=== PATIENT | female | born 1950 | race Caucasian/White ===

== ENCOUNTER 2018-11-08 08:31 | Inpatient (IN) | payer OTHER, MEDICARE, SELFPAY ==
[2018-10-26 12:48] VITALS: BMI 38.4
[2018-11-08] VITALS (14 sets, daily range): BP systolic 115–162; BP diastolic 55–107; PULSE 61–87; RESP 8–16; TEMP 35.9–37.1; O2SAT 91–98; BMI 38.4
--- NOTE | 2018-11-08 | DI.RAD.S_ITS ---
PROCEDURE: XR HIP W PEL IF DONE RT 2V INDICATIONS: post operative total right hip TECHNIQUE: AP pelvis and lateral view of the right hip acquired. COMPARISON: None. FINDINGS: Bones: Patient is status post right hip arthroplasty, with hardware components in expected positions. The hip joint appears congruent. The visualized bony structures appear intact. Soft tissues: Overlying postoperative changes are noted. No suspicious soft tissue densities. IMPRESSION: Expected postoperative appearance. Dictated by: Nehemias Vega M.D. on 11/08/2018 at 15:45 Approved by: Nehemias Vega M.D. on 11/08/2018 at 15:45
--- NOTE | 2018-11-08 06:00 | DI.RAD.S_ITS ---
PROCEDURE: XR PELVIS 1-2V INDICATIONS: INTRA OPERATIVE RIGHT HIP TECHNIQUE: Intra-operative view of the pelvis and hip acquired. COMPARISON: None. FINDINGS: Bones: Intraoperative devices prior to placement of arthroplasty prostheses are in expected positions. No fractures or suspicious bony lesions. There is left hip joint degeneration Soft tissues: Overlying surgical retractors are present, along with other intraoperative changes. IMPRESSION: Expected intraoperative appearance Dictated by: Nehemias Vega M.D. on 11/08/2018 at 14:31 Approved by: Nehemias Vega M.D. on 11/08/2018 at 14:32
[2018-11-08] MEDS: ACETAMINOPHEN 325 MG TABLET 975 MG PO ×2 (09:06→21:28)
[2018-11-08] MEDS: LACTATED RINGERS 1,000 ML 42 ML IV ×2 (09:06→13:57)
[2018-11-08] MEDS: CELECOXIB 200 MG CAPSULE PO (09:07)
[2018-11-08] MEDS: PREGABALIN 75 MG CAPSULE PO (09:09)
[2018-11-08] MEDS: VANCOMYCIN 1,000 MG/200 ML FROZ.PIGGY 200 MG IV (10:30)
--- NOTE | 2018-11-08 11:45 | PM.PREOP ---
Pre-operative Note Interval Note History & Physical reviewed/Exam performed by Physician: Yes Changes to H&P: No
--- NOTE | 2018-11-08 11:46 | PM.OP.1 ---
Operative Date/Time/Diagnoses Date of procedure: 11/08/18 Time of procedure: 11:59 Pre-op diagnosis: right hip OA Post-op diagnosis: same Procedure & Clinicians Procedure: Right total hip arthroplasty Same procedure as scheduled: Yes Indications: The patient has had progressively worsening right hip pain with radiographic changes consistent with arthritis. Non-operative management has failed and the patient has requested total hip replacement. The risks, benefits and alternatives to surgery were discussed with the patient prior to proceeding. Risks discussed included, but were not limited to, failure to relieve pain, leg length discrepancy, dislocation, stiffness, infection, nerve damage, deep venous thrombosis, pulmonary embolism, stroke, coma, heart attack, permanent paralysis and , as well as the potential need for eventual revision of the prosthetic. Surgeon: Makenzie Salgado Watch Crystal Grinder: Belle Smith Anesthesia Type: General and Spinal Operative Notes Findings: Severe right hip AVN with moderate bone softening Closure Type: primary Specimen(s): none sent Prosthetic devices, grafts, tissues, transplants, or devices: Salgado and Nephew anthology 6 standard offset, 48 R3, 1 15mm screw, 32 +0 Applied: drain(s) Estimated Blood Loss (mL): 250 Blood products transfused: none Procedure in detail: The patient was seen in the pre-operative area, where the patient identified the right hip as the operative site and this was marked with my initials. The patient received pre-operative antibiotics and was taken to the operating room and placed on the operative table in the left lateral decubitus position after satisfactory anesthesia. A multimedia assistant out was performed. The right leg was prepared from the ankle to the iliac crest with ChloroPrep in the usual fashion and draped through sterile drapes. The hip was approached through an approximately 20 cm incision centered over the greater trochanter and curving gently posteriorly as it went proximally. This was carried sharply to the fascia patrick, which was divided and retracted with a self retaining retractor. There was an atypical bursae encountered superficial to the fascia patrick. It was carefully removed and freshened to allow the subcutaneous tissue to heal to the underlying fascia. The trochanteric bursa was excised with care being taken to avoid the sciatic nerve, which was identified and protected throughout the case. The short external rotators were incised and the capsulomuscular flap was raised and tagged for later repair. The hip was dislocated, and a femoral neck osteotomy performed approximately 15 mm above the lesser trochanter. Retractors were placed around the femur. The canal was opened with a box cutting osteotome, followed by a T handled reamer and a lateralizing reamer. The chili pepper broach was then used, followed by sequential broaching until there was good stability of the broach in the femur. Retractors were placed to expose the acetabulum. The labrum and central soft tissues were removed. Reaming was performed initially going up in 2 mm increments, then 1 mm increments until good bite was obtained with an odd sized reamer. The cup 1 mm larger than the last reamer was then inserted using the appropriate anteversion guides. A trial neutral liner was placed. The broach was placed in the canal. A trial head and neck were then placed and the hip relocated and checked for leg length and stability. An intraoperative film confirmed the component position and no evidence of fracture. The patient was stable in the position of sleep, of squatting, and could be put through a range of motion with 45 degrees internal rotation without dislocation. At 90 degrees flexion, internal rotation to [70] was possible before dislocation. This was felt to be satisfactory and the appropriate components were opened, and the trials were removed. She had a soft acetabulum and it was opted to stabilize the cup with a single screw and then the line was impacted. The acetabular liner was impacted into position. The final stem was then impacted into the prepared femoral canal. A brief Betadine soak was performed while trialing with head options. The hip was meticulously irrigated with normal saline. Finally the femoral head was impacted onto the stem. The acetabulum was cleared of all material and the hip relocated one final time. The capsulomuscular flap was then repaired to the greater trochanter though an awl hole using the tag sutures. The short external rotators were repaired with a nonabsorbable suture. A deep drain was placed and brought out anteriorly. The fascia patrick was closed with Vicryl. The subcutaneous layer was closed with barbed sutures and SteriStrips. An Aquacel Ag dressing was applied and the patient was taken to recovery having tolerated the procedure well. Complications: none Condition: stable Disposition: Acute Care Plan for aftercare: The patient will be maintained on a standard total hip replacement protocol with weight bearing as tolerated and posterior hip precautions. The patient will receive Aspirin and sequential compression devices for DVT prophylaxis. The patient will be discharged home when safe for the home environment.
[2018-11-08] MEDS: CEFAZOLIN 2 GM/100 ML FROZ.PIGGY IV ×2 (11:50→21:36)
--- NOTE | 2018-11-08 12:05 | PM.CHAP ---
patient still in surgery when I stopped by
--- NOTE | 2018-11-08 12:24 | PC.NURSE ---
Day shift: Pt not on AC unit at this time.
--- NOTE | 2018-11-08 12:33 | SUR.OPER ---
LEFT Lateral on padded OR bed. Gel axillary roll. Arms secured on padded armboard with pillow supporting top arm. Padded hip positioner braces x4 - anterior and posterior chest and pelvis. Additional gel pad used anterior pelvis. Gel pad under bottom leg from knee to foot and secured with tape over sheet.
[2018-11-08] MEDS: BUPIVACAINE 0.25% W/ EPI 30 ML VIAL 60 ML INJ (12:39)
[2018-11-08] MEDS: TRANEXAMIC ACID 1,000 MG VIAL 1000 MG INJ ×2 (12:40→14:05)
[2018-11-08] MEDS: BUPIVACAINE LIPOSOME 266 MG/20 ML VIAL INJ (12:40)
[2018-11-08] MEDS: POVIDONE-IODINE 15 ML, SODIUM CHLORIDE 0.9% 250 ML TOP (12:41)
[2018-11-08] MEDS: SODIUM CHLORIDE IRRIG SOLUTION 250 ML, EPINEPHrine 1 MG IRR (12:43)
--- NOTE | 2018-11-08 16:10 | SUR.PHASEI ---
james started at 1030 but documentation was never completed. Stopped by this designer/writer to show [id number]
[2018-11-08] MEDS: hydrOXYzine pamoate 25 MG CAPSULE PO (16:30)
[2018-11-08] MEDS: LACTATED RINGERS 1,000 ML 125 ML IV (16:38)
[2018-11-08] MEDS: ONDANSETRON 4 MG/2 ML INJ IV (18:18)
[2018-11-08] MEDS: diphenhydrAMINE 25 MG TABLET 50 MG PO (21:06)
[2018-11-08] MEDS: ASPIRIN EC 81 MG TABLET PO (21:28)
[2018-11-08] MEDS: ONDANSETRON 4 MG ODT PO (21:29)
[2018-11-08] MEDS: DOCUSATE 100 MG CAPSULE PO (21:29)
[2018-11-08] MEDS: IBUPROFEN 400 MG TABLET 800 MG PO (21:30)
[2018-11-09 00:15] VITALS: BP 120/70; PULSE 67; RESP 18; TEMP 36.7; O2SAT 94
[2018-11-09] MEDS: LACTATED RINGERS 1,000 ML 125 ML IV (00:30)
[2018-11-09 03:15] VITALS: BP 121/69; PULSE 69; RESP 16; TEMP 36.5; O2SAT 95
[2018-11-09] MEDS: diphenhydrAMINE 25 MG TABLET 50 MG PO (03:19)
[2018-11-09] MEDS: CEFAZOLIN 2 GM/100 ML FROZ.PIGGY IV (03:28)
[2018-11-09] MEDS: HYDROMORPHONE 2 MG TABLET PO ×2 (03:34→21:26)
--- NOTE | 2018-11-09 05:13 | PC.NURSE ---
Addendum entered and electronically signed by Jacki Santos R.N. 11/09/18 06:45: Bladder scan at 0650 showed 324mls urine. Patient denies pain at this time. Original Note: Addendum entered and electronically signed by Jacki Santos R.N. 11/09/18 05:37: Pt has artificial light aversion issues, needs sunglasses when lights are on in the room. Original Note: Pt is and co-operative, and assertive. Pt has denied pain most of the shift until she was up to urinate. Pt was unable to urinate at 0330. She was bladder scanned and her volume was 142ml. Will continue to monitor and re-assess before shift change. After the restroom, pt was in need of some pain medication. Pain was 2/10, was given 2mg dilaudid for pain at 0330. VSS, Lung sounds clear bilaterally. Dressing is clean/dry and intact, Aquacell dressing on posterior hip. Pt is on [place] maybe D/C tomorrow.
[2018-11-09 05:50] LABS: Hematocrit 33.2 % (36-46); Hemoglobin 10.7 g/dL (12.0-16.0)
--- NOTE | 2018-11-09 07:43 | P.PN_ITS ---
Subjective Date Patient Seen: 11/09/18 Interval history: Patient is seen bedside status post right total hip arthro plasty on 11/08/[address] Salgado. Patient is POD #1. She is doing well, her pain is well controlled but had some urinary retention overnight. Her pain is controlled and she denies nausea/vomiting at this time. Exam Vital Signs (past 8 hours): - 11/09/18 00:15 11/09/18 03:15 Temperature 98.1 F 97.7 F Pulse Rate 67 69 Respiratory Rate 18 16 Blood Pressure 120/70 121/69 Pulse Oximetry 94 95 Oxygen Delivery Method Room Air Narrative Exam Narrative: Well-developed, well-nourished, no acute distress. Alert and oriented to person, place, and time. Dressing on operative hip is clean, dry, a nd intact with no signs of drainage. Minimal erythema and generalized swelling around the surgical site. Neurovascularly intact in the operative extremity with a soft and compressible calf. Range of motion of the operative ankle intact. Objective Labs Result Diagrams: 11/09/18 05:29 Labs: Laboratory Results - last 24 hr 11/09/18 05:29 Hgb 10.7 L Hct 33.2 L Assessment & Plan Post-op (1) Morbid obesity with BMI of 40.0-44.9, adult: Postoperative Procedures Operation Date: 11/08/18 10:30 Actual Procedures Side Surgeon p Total Hip Arthroplasty/Posterior Right Makenzie Monika Salgado MD 1. POD #1 s/p above procedure-PT/OT, pain control. Follow posterior hip precautions 2. Urinary retention-voiding trial today. Dispo-d/c home once medically stable and ambulating well with therapy, likely tomorrow Quality VTE Deep Vein Thrombosis/Pulmonary Embolism Present on Admission: No
[2018-11-09 08:00] VITALS: BP 116/69; PULSE 60; RESP 16; TEMP 36.4; O2SAT 94
[2018-11-09] MEDS: DOCUSATE 100 MG CAPSULE PO ×2 (08:55→21:27)
[2018-11-09] MEDS: MELOXICAM 7.5 MG TABLET 15 MG PO (08:55)
[2018-11-09] MEDS: ASPIRIN EC 81 MG TABLET PO ×2 (08:55→21:27)
[2018-11-09] MEDS: ACETAMINOPHEN 325 MG TABLET 975 MG PO ×3 (08:55→21:27)
--- NOTE | 2018-11-09 10:01 | PT.IIE ---
Current Diagnoses Morbid (severe) obesity due to excess calories (11/08/18) Unilateral primary osteoarthritis, right hip (11/08/18) Body mass index (BMI) 40.0-44.9, adult (11/08/18) Surgery Performed Operation Date: 11/08/18 10:30 Actual Procedures p Total Hip Arthroplasty/Posterior(Right) - Makenzie Salgado MD Surgical History (Last Updated 10/26/18 @ 13:18 by Oly Villegas, RN) Hx of appendectomy (Acute) S/P cervical spinal fusion (Acute ~1991) Status post bilateral cataract extraction (Acute) Medical History (Last Updated 10/26/18 @ 13:26 by Oly Villegas RN) BCC (basal cell carcinoma) (Acute) Benign positional vertigo (Acute) Concussion (Acute) HLD (hyperlipidemia) (Acute) Hx of ectopic (Acute) Pelvic fracture (Acute) Periodontal disease (Acute) Right foot drop (Acute) Physical Therapy Inpatient Evaluation/Re-Eval M1 PT/OT-IP Prior Functional Status Start: 11/08/18 17:08 Freq: NEEDED Status: Active Protocol: Document 11/09/18 08:20 (Rec: 11/09/18 10:01 [email or web address]) Medical Review Prior Functional Status Medical History Reviewed Yes Diet/Fluid Consistency Regular Communication No deficits noted. Able to make needs known Mobility and Gait Pt was independent for mobility at home and community without AD. She is mostly home bound and able to local shopping, appt but cannot go far due to chronic hip pain . She also drives. Activities of Daily Living and IADL's indepedent for ADLs and IADLs without AD Prior Functional Level (Other details) has difficult time doing garden work. Social History Household Members none Living Arrangements House Number of Floors (Floors) One Floor Number of Stairs To Enter/Railing? 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 She mostly works at home. She states she is pretty much home bound to use her computer to work, usually gets up to bathroom every hour. She has a recliner at home and plans to sleep on it until she feels safe to use her high bed. She usually needs a step stool to get on her bed. M2 PT-IP Current Condition Start: 11/08/18 17:08 Freq: NEEDED Status: Active Protocol: Document 11/09/18 08:20 HH (Rec: 11/09/18 10:01 [email or web address]) Physical Therapy Current Condition Current Condition Evaluation Date 11/09/18 Treatment Diagnosis R JUNI posterior approach, impaired gait and activity tolerance Onset Date 11/08/18 Precautions Posterior Hip Precautions No Hip Flexion > 90 degrees No Hip Internal Rotation No Hip Adduction Weight Bearing Status Weight Bearing Status Weight Bear as Tolerated M3 PT-IP Subjective Start: 11/08/18 17:08 Freq: NEEDED Status: Active Protocol: Document 11/09/18 08:20 HH (Rec: 11/09/18 10:01 [email or web address]) Subjective Physical Therapy Visit Type Type Initial Evaluation Visit Start Time 08:20 Visit Stop Time 09:00 Total Visit Minutes 40 Notes Hemovac, IV just removed upon assessment Number of PAPER CONE MACHINE TENDER Visits 0 Physical Therapy Visit Comments Patient Comments I want to get mobilized and take a shower after. Patient Goals To return home Therapy Pain Assessment Pain When Pain Assessed During Mobility Pain Present Pain Present Denied Pain M4 PT-IP Mobility and Gait Start: 11/08/18 17:08 Freq: NEEDED Status: Active Protocol: Document 11/09/18 08:20 HH (Rec: 11/09/18 10:01 [email or web address]) PT-Bed Mobility Assessment Supine to Sit Supine to Sit Contact Guard Assistance Head of Bed Elevated Bedrails Scooting Scooting to Edge of Bed Contact Guard Assistance PT-Transfer Assessment Sit to and From Stand Sit to and from Stand Contact Guard Assistance Use of Upper Extremities Equipment Transfer Assistive Device None Front Wheeled Walker Orthotic/Prosthetic Devices or Brace: No Transfers Transfer Destination Bed Chair Bedside Commode Transfer Technique Stand Step Pivot Transfer Ability Level of Assist Contact Guard Assistance Use of Upper Extremities Comments Mobility Comments Pt sat up from supine from elevated HOB 40 degrees then pivot her RLE to edge of bed. Pt needs increased time to pivot and scooting but remained safe and CGA. She then stood up and transfers between surface multiple times with FWW and stand step pivot . She also stood in front of counter for self care for >10 mins without supported. She is overall very safe and steady. Gait Assessment Gait Gait Assistance Required: Standby Assistance Distance (Feet) 150 Able to Maintain Weight Bearing Status Yes During Gait Assistive Devices Assistive Device None Front Wheeled Walker Orthotic/Prosthetic Devices or Brace: No Gait Deviations General Gait Pattern Antalgic Decreased Stride Length Decreased Feet Clearance Step-to Gait Factors Limiting Gait Function Factors Limiting Gait Function Decreased Activity Tolerance Decreased Strength Limited Range of Motion Poor Safety Awareness Respiratory Distress Comments Gait Comments Pt amb from her room to hallway with FWW SBA. She demonstrated a step to and R antalgic gait pattern but her speed is relatively slow but steady. However, she denies pain and discomfort and able to amb 150 feet without rest. Stair Climbing Assessment Comments Stair Climbing Comments did not attempt PT-Balance Assessment Sitting Balance and Reactions Static Sitting Balance Ability Normal Dynamic Sitting Balance Ability Normal Standing Balance and Reactions Static Standing Balance Ability Good Dynamic Standing Balance Ability Good Device Used FWW M5 PT-IP Objective Assessments Start: 11/08/18 17:08 Freq: NEEDED Status: Active Protocol: Document 11/09/18 08:20 (Rec: 11/09/18 10:01 [email or web address]) Orientation Orientation/Cognition Level of Alertness Alert Orientation Name Age Birthday Month Date Year Day of Week Place Situation Language Function Ability No Deficits Noted Safety Awareness Understands Safety Issues Memory Description No Deficits Noted Gross Range of Motion Upper Extremity ROM Assessment Within Functional Limits Lower Extremity ROM Assessment Right Impaired Strength Upper Extremity Strength Assessment Within Functional Limits Lower Extremity Strength Assessment Right Impaired Hip 3+/5 Knee 4+/5 Ankle 4+/5 Coordination Assessment Gross Coordination Gross Coordination WNL Sensation Assessment Sensation Gross Sensation WNL Light Touch Intact Proprioception (Position) Intact Muscle Tone Muscle Tone WNL Yes M6 PT-IP Treatment Start: 11/08/18 17:08 Freq: NEEDED Status: Active Protocol: Document 11/09/18 08:20 (Rec: 11/09/18 10:01 [email or web address]) Physical Therapy Treatment Exercises Exercises Ankle Pumps Gluteal Sets Quad Sets Heel Slides Straight Leg Raises Education Education Provided Precautions Weight Bearing Status Post-Op Packet Safety M7 PT-IP Assessment and Plan Start: 11/08/18 17:08 Freq: NEEDED Status: Active Protocol: Document 11/09/18 08:20 (Rec: 11/09/18 10:01 [email or web address]) PT Summary Assessment and Plan Potential Rehabilitation Potential Excellent Status of Condition at Evaluation Stable Summary Impairments Pain ROM Strength Balance Bed Mobility Transfers Gait Activity Tolerance Assessment Summary Pt is low complexity with s/p POD#2 R JUNI posterior approach . Pt is able to amb 150 feet without rest with SBA and FWW. She does need increased time for bed mobility and sit to stand. Pt lives alone with 2 GILSON and previously home bound most of the time so she will have to clear rehab goals in order to be d/c home safely. Pt will mostly benefit from home health therapy to improve her mobility. Goals Bed Mobility Goal Independent Transfer Goal Independent Front Wheeled Walker Gait Goal Independent Front Wheel Walker Gait Distance 300 Other Goals clear 2 GILSON without railings SBA Days to Meet Goals 3 Frequency of Treatment Frequency Of Treatment Twice a Day Treatment Plan Physical Therapy Treatment Plan Bed Mobility Training Transfer Training Gait Training Therapeutic Exercise Balance Retraining Post Op Education Discharge Planning Hot or Cold Pack Other Recommendations and Next Treatment bed mob, STS and transfer Focus gait training and stair climbing as daljit Recommendations To Nursing Amount of Assist Needed Standby Assistance Discharge Recommendations PT Discharge Recommendations Home Home Health Other Discharge Recommendations Pt lives alone with 2 GILSON and previously home bound most of the time so she will have to clear rehab goals in order to be d/c home safely. Pt will mostly benefit from home health therapy to improve her mobility. Equipment Needed for Home Before shower chair Discharge
--- NOTE | 2018-11-09 10:13 | CM.DPC ---
DCP Cont: Received a call from Christi Landaverde, RN, [employer] Blindstitch Machine Operator. She stated if we are in need of any discharge planning assistance for this patient, we can call her at [phone]. Carrie Goldman, [facility] Grain Shipper
[2018-11-09 11:00] VITALS: BP 120/60; PULSE 65; RESP 16; TEMP 36.1; O2SAT 96
--- NOTE | 2018-11-09 11:15 | CM.DANOTE ---
DCP: Case received, EMR reviewed and met with patient. Introduced self and role. Obtained information from patient regarding her health, and discharge plans. DCP template completed with information currently available. Patient is a 68 year old female who admitted yesterday morning to the care of the surgical team. PCP: Dr. Desai. Payer: confirmed: [employer]. Patient came to hospital for surgical procedure. She had R. Total Hip Arthroplasty. Patient has had history of chronic right hip pain. Met with her in her room. She was sitting up in her chair talking on the phone. Alert and oriented. 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 She does live alone, but she stated, she planned out who is going to help her before she had the surgery. She stated that she has plans to have her neighbor, Kirsten pick her up tomorrow. She lives next door to her. She will be coming over several times a day if she needs assist with meals, or any other assistance. She will also take patient's dog, to help out, since patient will have difficulties bending over to feed him. Patient feels that she has everything covered. Gave her discharge planning card, per her request, in case she has any questions or concerns. P: DCP to continue to follow closely. She could discharge home tomorrow, pending physical therapy and ortho. Emilia Sheehan RN/Public Works Director
[2018-11-09] MEDS: OXYCODONE IR 5 MG TABLET PO (11:19)
[2018-11-09] MEDS: SODIUM CHLORIDE 0.9% FLUSH 10 ML IV ×3 (11:20→21:27)
--- NOTE | 2018-11-09 14:01 | PT.IPTN ---
Current Diagnoses Morbid (severe) obesity due to excess calories (11/08/18) Unilateral primary osteoarthritis, right hip (11/08/18) Body mass index (BMI) 40.0-44.9, adult (11/08/18) Surgery Performed Operation Date: 11/08/18 10:30 Actual Procedures p Total Hip Arthroplasty/Posterior(Right) - Makenzie Salgado MD Physical Therapy Treatment Note M2 PT-IP Current Condition Start: 11/08/18 17:08 Freq: NEEDED Status: Active Protocol: Document 11/09/18 08:20 (Rec: 11/09/18 10:01 [email or web address]) Physical Therapy Current Condition Current Condition Evaluation Date 11/09/18 Treatment Diagnosis R JUNI posterior approach, impaired gait and activity tolerance Onset Date 11/08/18 Precautions Posterior Hip Precautions No Hip Flexion > 90 degrees No Hip Internal Rotation No Hip Adduction Weight Bearing Status Weight Bearing Status Weight Bear as Tolerated M3 PT-IP Subjective Start: 11/08/18 17:08 Freq: NEEDED Status: Active Protocol: Document 11/09/18 13:54 SA (Rec: 11/09/18 14:01 SA [email or web address]) Subjective Physical Therapy Visit Type Type Treatment Note Visit Start Time 13:00 Visit Stop Time 13:45 Total Visit Minutes 45 Notes Pt up in chair, agreeable to PT. Number of SURGICAL DEVICE SALES REPRESENTATIVE Visits 1 Physical Therapy Visit Comments Patient Comments PT rates pain as 2-3/10 with mobility. Patient Goals To return home Therapy Pain Assessment Pain When Pain Assessed During Mobility Pain Present Pain Present Pain Reported Location R hip Intensity 2 Scale Used Numeric (1 - 10) Pain Management Techniques Apply Cold Re-positioning Timing of Activity with Medications M4 PT-IP Mobility and Gait Start: 11/08/18 17:08 Freq: NEEDED Status: Active Protocol: Document 11/09/18 13:54 SA (Rec: 11/09/18 14:01 SA [email or web address]) PT-Transfer Assessment Sit to and From Stand Sit to and from Stand Standby Assistance Contact Guard Assistance 1 Person Assistance Equipment Transfer Assistive Device None Front Wheeled Walker Orthotic/Prosthetic Devices or Brace: No Transfers Transfer Destination Bed Chair Toilet Transfer Ability Level of Assist Standby Assistance 1 Person Assistance Comments Mobility Comments Pt SBA for transfers on/off chair and toilet, uses FWW safely, no LOb. Pt understands and able to recite posterior hip precautions. Gait Assessment Gait Gait Assistance Required: Standby Assistance Distance (Feet) 450 Able to Maintain Weight Bearing Status Yes During Gait Assistive Devices Assistive Device None Front Wheeled Walker Orthotic/Prosthetic Devices or Brace: No Gait Deviations General Gait Pattern Antalgic Decreased Stride Length Decreased Feet Clearance Factors Limiting Gait Function Factors Limiting Gait Function Decreased Activity Tolerance Decreased Strength Comments Gait Comments Pt walked 450 feet with 3 standing rest breaks and slow, steady pace. Progressed to even step length with increasing WBing through RLE. Stair Climbing Assessment Evaluation Level of Assist On Stairs Contact Guard Assistance Devices Stair Climbing Assistive Devices Left Railing Right Railing Technique/Endurance Stair Climbing Direction Ascend and Descend Stair Climbing Technique Step to Step Number of Steps Climbed 3 Query Text: Stair Climbing Set # Repetitions (reps) 2 Comments Stair Climbing Comments PT CGA with stairs and use of B rails, mod cues for technique and denies increase in hip pain with activity. PT-Balance Assessment Sitting Balance and Reactions Static Sitting Balance Ability Normal Dynamic Sitting Balance Ability Normal Standing Balance and Reactions Static Standing Balance Ability Good Dynamic Standing Balance Ability Good Device Used FWW M5 PT-IP Objective Assessments Start: 11/08/18 17:08 Freq: NEEDED Status: Active Protocol: Document 11/09/18 08:20 (Rec: 11/09/18 10:01 [email or web address]) Orientation Orientation/Cognition Level of Alertness Alert Orientation Name Age Birthday Month Date Year Day of Week Place Situation Language Function Ability No Deficits Noted Safety Awareness Understands Safety Issues Memory Description No Deficits Noted Gross Range of Motion Upper Extremity ROM Assessment Within Functional Limits Lower Extremity ROM Assessment Right Impaired Strength Upper Extremity Strength Assessment Within Functional Limits Lower Extremity Strength Assessment Right Impaired Hip 3+/5 Knee 4+/5 Ankle 4+/5 Coordination Assessment Gross Coordination Gross Coordination WNL Sensation Assessment Sensation Gross Sensation WNL Light Touch Intact Proprioception (Position) Intact Muscle Tone Muscle Tone WNL Yes M6 PT-IP Treatment Start: 11/08/18 17:08 Freq: NEEDED Status: Active Protocol: Document 11/09/18 13:54 SA (Rec: 11/09/18 14:01 SA [email or web address]) Physical Therapy Treatment Exercises Exercises Ankle Pumps Gluteal Sets Quad Sets Heel Slides Straight Leg Raises Education Education Provided Precautions Weight Bearing Status Post-Op Packet Safety M7 PT-IP Assessment and Plan Start: 11/08/18 17:08 Freq: NEEDED Status: Active Protocol: Document 11/09/18 13:54 SA (Rec: 11/09/18 14:01 SA [email or web address]) PT Summary Assessment and Plan Potential Rehabilitation Potential Excellent Status of Condition at Evaluation Stable Summary Assessment Summary Pt to return home and sleep in a recliner temporarily, has elevated toilet and grab bar and personal FWW. Demonstrates good safety awareness and improving gait. Frequency of Treatment Frequency Of Treatment Twice a Day Treatment Plan Physical Therapy Treatment Plan Bed Mobility Training Transfer Training Gait Training Therapeutic Exercise Balance Retraining Post Op Education Discharge Planning Hot or Cold Pack Other Recommendations and Next Treatment bed mob, STS and transfer Focus gait training and stair climbing as daljit Recommendations To Nursing Amount of Assist Needed Standby Assistance Discharge Recommendations PT Discharge Recommendations Home Home Health
--- NOTE | 2018-11-09 15:11 | CM.DPC ---
Addendum entered by Emilia Sheehan R.N. 11/09/18 15:57: [facility] also does not take [employer] insurance. Signature stated that patient would have to pay 40% because she is out of network, which would be approximately 100.00 a visit. Updated patient, and she stated, she can't do that. Patient also called her insurance, [facility], and they gave phone numbers for providing agencies, [facility] Confirmed that they do not leave [facility]. Attempted [place], and they do not serve [facility]. Attempted another agency, [facility], which was not a home health agency. Attempted [facility], but this is a nursing agency. Will attempt to reach out to her [facility] high risk case manager tomorrow, for a message has been left with her already. Patient is aware of situation. Original Note: DCP Cont: Patient called this high risk case manager's phone here in office and stated that she would like to have some short term home health physical therapy. She stated that after a few sessions, she can then pursue outpatient physical therapy. She thinks that she will probably be discharged tomorrow. Asked her if she had a preference on home health agencies, and she stated she does not. Would also need to get orders from orthopedist as well. Let her know that this high risk case manager can look into some agencies and send some information. Called [facility] and spoke to Linda. Verified that they do not accept [employer]. Left a message with [facility] [employer] [employer], and faxed over history and physical, face sheet, and physical therapy notes. Left a message with [facility] as well, but have not yet faxed them information. Also, left a message with Demetria high risk case manager at [facility] regarding agencies that accept her insurance. P: DCP to continue to follow closely. Patient could be discharged tomorrow. Patient is requesting home health P.T, and will await hearing back from [facility], as well as [facility]. Notes already faxed to [facility]. Will also need to get face to face signed as well. Emilia Sheehan RN/Community Recreation Coordinator
[2018-11-09 15:42] VITALS: BP 126/55; PULSE 66; RESP 18; TEMP 36.8; O2SAT 95
[2018-11-09] MEDS: hydrOXYzine pamoate 25 MG CAPSULE PO (16:08)
--- NOTE | 2018-11-09 16:29 | PC.NURSE ---
Addendum entered by Jessica Martinez R.N. 11/09/18 23:39: Declined pain meds until hs. Float RN medicated pt as per request. Now resting quietly in bed without signs of discomfort or distress. Original Note: Pt ambulatory with walker in hallway at beginning of shift. Rates pain 3/10 and admits to full sensation to BL LE's. Denies difficulty with voiding. Up in recliner for evening meal. Own I.S. available and pt engaged in use.
[2018-11-09 20:41] VITALS: BP 121/72; PULSE 59; RESP 18; TEMP 36.8; O2SAT 100
[2018-11-10] VITALS: BP 125/61; PULSE 61; RESP 16; TEMP 37; O2SAT 94
--- NOTE | 2018-11-10 00:14 | PC.NURSE ---
2300- POD#1 total R hip via posterior approach w/ aquasil dressing in place CDI; hemovac removed on dayshift dressing has been changed x1. Pt moving independently in room, CMS +, saline locked. Tolerating regular diet w/ VSS.
[2018-11-10] MEDS: HYDROMORPHONE 2 MG TABLET PO ×2 (03:02→08:07)
[2018-11-10 03:12] VITALS: BP 156/72; PULSE 85; RESP 16; TEMP 37.1; O2SAT 99
--- NOTE | 2018-11-10 07:31 | CM.DPC ---
DCP Cont: Did reach out to Demetria insurance case manager for [employer]. Confirmed that there are no local home health agencies that accept [employer]. Stated that outpatient P.T. in [facility], [place], sports therapy are all contracted. Will update patient. P: DCP to continue to follow. Will collaborate with physical therapy team today, as well as ortho, for planning. Emilia Sheehan RN/Manager File
[2018-11-10 08:00] VITALS: BP 142/72; PULSE 72; RESP 16; TEMP 36.7; O2SAT 97
[2018-11-10] MEDS: hydrOXYzine pamoate 25 MG CAPSULE PO (08:07)
[2018-11-10] MEDS: MELOXICAM 7.5 MG TABLET 15 MG PO (08:07)
[2018-11-10] MEDS: DOCUSATE 100 MG CAPSULE PO (08:07)
[2018-11-10] MEDS: ASPIRIN EC 81 MG TABLET PO (08:07)
[2018-11-10] MEDS: SODIUM CHLORIDE 0.9% FLUSH 10 ML IV (08:08)
[2018-11-10] MEDS: ACETAMINOPHEN 325 MG TABLET 975 MG PO (08:08)
--- NOTE | 2018-11-10 11:02 | PT.IPTN ---
Current Diagnoses Morbid (severe) obesity due to excess calories (11/08/18) Unilateral primary osteoarthritis, right hip (11/08/18) Body mass index (BMI) 40.0-44.9, adult (11/08/18) Surgery Performed Operation Date: 11/08/18 10:30 Actual Procedures p Total Hip Arthroplasty/Posterior(Right) - Makenzie Salgado MD Physical Therapy Treatment Note M2 PT-IP Current Condition Start: 11/08/18 17:08 Freq: NEEDED Status: Active Protocol: Document 11/09/18 08:20 (Rec: 11/09/18 10:01 [email or web address]) Physical Therapy Current Condition Current Condition Evaluation Date 11/09/18 Treatment Diagnosis R JUNI posterior approach, impaired gait and activity tolerance Onset Date 11/08/18 Precautions Posterior Hip Precautions No Hip Flexion > 90 degrees No Hip Internal Rotation No Hip Adduction Weight Bearing Status Weight Bearing Status Weight Bear as Tolerated M3 PT-IP Subjective Start: 11/08/18 17:08 Freq: NEEDED Status: Active Protocol: Document 11/10/18 10:53 SA (Rec: 11/10/18 11:01 [id number]) Subjective Physical Therapy Visit Type Type Treatment Note Visit Start Time 09:10 Visit Stop Time 09:45 Total Visit Minutes 35 Notes Pt standing at sink performing ADLs, agreeable to PT. Number of PERSONAL COMPUTER NETWORK ENGINEER Visits 2 Physical Therapy Visit Comments Patient Comments Rates pain as very low, maybe a 2. Patient Goals To return home Therapy Pain Assessment Pain When Pain Assessed During Mobility Pain Present Pain Present Pain Reported Location R hip Intensity 2 Scale Used Numeric (1 - 10) Pain Management Techniques Apply Cold Re-positioning Timing of Activity with Medications M4 PT-IP Mobility and Gait Start: 11/08/18 17:08 Freq: NEEDED Status: Active Protocol: Document 11/10/18 10:53 SA (Rec: 11/10/18 11:01 [id number]) PT-Transfer Assessment Sit to and From Stand Sit to and from Stand Standby Assistance 1 Person Assistance Equipment Transfer Assistive Device None Front Wheeled Walker Orthotic/Prosthetic Devices or Brace: No Transfers Transfer Destination Bed Chair Toilet Transfer Ability Level of Assist Standby Assistance Comments Mobility Comments Pt SBA with safe transfers and sit to stands, plans to sleep in recliner initially at home . Gait Assessment Gait Gait Assistance Required: Standby Assistance Distance (Feet) 500 Able to Maintain Weight Bearing Status Yes During Gait Assistive Devices Assistive Device None Front Wheeled Walker Orthotic/Prosthetic Devices or Brace: No Gait Deviations General Gait Pattern Antalgic Decreased Stride Length Decreased Feet Clearance Factors Limiting Gait Function Factors Limiting Gait Function Decreased Activity Tolerance Decreased Strength Comments Gait Comments Pt with improving gait quality , able to WB less through UEs and maintain upright stanging posture better with increased step length. Stair Climbing Assessment Evaluation Level of Assist On Stairs Standby Assistance Contact Guard Assistance Devices Stair Climbing Assistive Devices Right Railing Technique/Endurance Stair Climbing Direction Ascend and Descend Stair Climbing Technique Step to Step Number of Steps Climbed 3 Query Text: Stair Climbing Set # Repetitions (reps) 1 Comments Stair Climbing Comments Pt SBA-CGA with use of single rail and step to gait, no LOB and min cues. M5 PT-IP Objective Assessments Start: 11/08/18 17:08 Freq: NEEDED Status: Active Protocol: Document 11/09/18 08:20 (Rec: 11/09/18 10:01 [email or web address]) Orientation Orientation/Cognition Level of Alertness Alert Orientation Name Age Birthday Month Date Year Day of Week Place Situation Language Function Ability No Deficits Noted Safety Awareness Understands Safety Issues Memory Description No Deficits Noted Gross Range of Motion Upper Extremity ROM Assessment Within Functional Limits Lower Extremity ROM Assessment Right Impaired Strength Upper Extremity Strength Assessment Within Functional Limits Lower Extremity Strength Assessment Right Impaired Hip 3+/5 Knee 4+/5 Ankle 4+/5 Coordination Assessment Gross Coordination Gross Coordination WNL Sensation Assessment Sensation Gross Sensation WNL Light Touch Intact Proprioception (Position) Intact Muscle Tone Muscle Tone WNL Yes M6 PT-IP Treatment Start: 11/08/18 17:08 Freq: NEEDED Status: Active Protocol: Document 11/10/18 10:53 SA (Rec: 11/10/18 11:01 [id number]) Physical Therapy Treatment Exercises Exercises Ankle Pumps Gluteal Sets Quad Sets Heel Slides Straight Leg Raises Education Education Provided Precautions Weight Bearing Status Post-Op Packet Safety M7 PT-IP Assessment and Plan Start: 11/08/18 17:08 Freq: NEEDED Status: Active Protocol: Document 11/10/18 10:53 SA (Rec: 11/10/18 11:01 [id number]) PT Summary Assessment and Plan Potential Rehabilitation Potential Excellent Status of Condition at Evaluation Stable Summary Assessment Summary Pt progressing well and ready for d/c home, able to manage ADLs, stairs and gait safely. Has need equipment at home. Frequency of Treatment Frequency Of Treatment Twice a Day Treatment Plan Physical Therapy Treatment Plan Bed Mobility Training Transfer Training Gait Training Therapeutic Exercise Balance Retraining Post Op Education Discharge Planning Hot or Cold Pack Recommendations To Nursing Amount of Assist Needed Standby Assistance Discharge Recommendations PT Discharge Recommendations Home Outpatient PT
--- NOTE | 2018-11-10 11:08 | P.DS_ITS ---
History of Present Illness Date Patient Seen: 11/10/18 Chief complaint: [id number] Narrative: Patient is seen bedside status post right total hip arthroplasty with Dr. Salgado on 11/08/2018. Patient is postop day 2. Her pain is well controlled, she has been ambulating well with physical therapy as well as on her own with a walker. She would like to go home today. She denies chest pain shortness of breath nausea vomiting. Originally patient did want to have home health physical therapy however her insurance does not cover any of the companies in [facility]. Discharge Providers Date of admission: 11/08/18 08:31 Discharge Date: 11/10/18 Consults: 10/26/18 13:38 Consult to Pastoral Services Routine Comment: RT JUNI 11/08/18 11/08/18 06:00 Consult to Anesthesiology Routine Comment: Consulting Provider: Anesthesiologist Reason for consultation: Regional block for post operative pain control 11/08/18 16:03 Consult to Discharge Planning Routine Comment: Consult to Physical Therapy Evaluate & Treat Comment: Physician Instructions: post op JUNI protocol Consult to Respiratory Therapy Evaluate & Treat Comment: Physician Instructions: Evaluate and treat Discharge provider: Belle Smith PA-C Summary Discharge Diagnosis: Right hip osteoarthritis Morbid obesity Hospital Course: Patient admitted to the hospital status post right total hip arthroplasty on 11/08/[address] Salgado. Patient tolerated the procedure well with no major complications. They were transferred to the acute care floor where they were placed on the standard joint replacement pathway and protocol. They were seen by physical therapy who recommended that they be discharged home. They were stable and ready for discharge on 11/10/2018 Status at Discharge Cognitive/behavioral status at discharge: oriented Functional status at discharge: uses cane/walker Overall status at discharge: patient is progressing back to baseline Exam Vital Signs (past 8 hours): - 11/10/18 00:00 11/10/18 03:12 Temperature 98.6 F 98.7 F Pulse Rate 61 85 Respiratory Rate 16 16 Blood Pressure 125/61 156/72 H Pulse Oximetry 94 99 Oxygen Delivery Method Room Air Oxygen Flow Rate 0 Narrative Exam Narrative: Well-developed, well-nourished, no acute distress. Alert and oriented to person, place, and time. Dressing on operative hip is clean, dry, and intact with no signs of drainage. Minimal erythema and generalized swelling around the surgical site. Neurovascularly intact in the operative extremity with a soft and compressible calf. Range of motion of the operative ankle intact. Objective Labs Result Diagrams: 11/09/18 05:29 Discharge Plan Discharge Plan Patient Disposition: Home Discharge Med Rec/Prescriptions Prescriptions: New aspirin 81 mg Tablet,Delayed Release (Dr/Ec) 81 mg PO BID Qty: 0 RF: 0 oxycodone 5 mg Tablet 5 mg PO Q4H PRN (Reason: Pain, Moderate (4-6)) Qty: 0 RF: 0 hydroxyzine pamoate 25 mg Capsule 25 mg PO Q6HR PRN (Reason: Spasms) Qty: 0 RF: 0 hydromorphone [Dilaudid] 2 mg tablet 2 mg PO Q4-6H PRN (Reason: pain) Qty: 15 RF: 0 Continued ibuprofen 800 mg Tablet 800 mg PO TID RF: 0 acetaminophen [Tylenol Extra Strength] 500 mg Tablet 1,000 mg PO TID RF: 0 Follow up/Referrals: Makenzie Salgado MD [Physician] - (Follow up in the office in 5-7 days at your previously scheduled appointment. Please refer to [facility] book for appointment information.) Provider Discharge Instructions Diet: Diet as Tolerated Activity: Weight-bearing as tolerated, follow posterior hip precautions. Elevate operative leg as needed to help with swelling. Cold/Heat Therapy: Apply ice to affected area for 20 minutes at a time at least hourly while awake. Other treatments: Please refer to [facility] book for other questions and concerns. Skin/Wound/Dressing Care Report to your healthcare provider any signs of infection, such as:: chills, fever, night sweats, increased pain, unusual drainage and unusual redness Dressing: Keep dressing clean, dry, and intact. May shower with it in place but no soaking. Visit Report/Discharge Packet Instructions: DI for Hip Replacement Stand Alone Forms: Surgery Discharge Discharge Data Attending Provider: Makenzie Salgado Admit Date/Time: 11/08/18 08:31 Quality VTE Deep Vein Thrombosis/Pulmonary Embolism Present on Admission: No
--- NOTE | 2018-11-10 11:52 | PC.NURSE ---
Discharge PIV removed without issue. d/c instructions provided to pt. Aware to contact MD with any additional questions or concerns. Left with Rx for dilaudid as ordered. Other Rx already at home as pt is [facility] pt. Left in w/c with [employer] escort. States she took all belongings with her.
== END 2018-11-10 11:35 | disposition home or self-care (01) | DRG 470 ==
PROVIDERS: Admitting Provider Orthopaedic Surgery; Visit Provider Orthopaedic Surgery
PROC: 0SR90JZ Replacement of Right Hip Joint with Synthetic Substitute, Open Approach (ICD-10-PCS; CPT 27130; principal; 2018-11-08 10:30)
DX: M16.11 Unilateral primary osteoarthritis, right hip (principal); M87.851 Other osteonecrosis, right femur; M21.371 Foot drop, right foot; Z87.81 Personal history of (healed) traumatic fracture; E66.9 Obesity, unspecified; Z68.38 Body mass index [BMI] 38.0-38.9, adult; R33.9 Retention of urine, unspecified
CPT/HCPCS: 36415; 72170; 73502; 85014; 85018; 94762; 97110; 97116; 97161; 97530; C1776; C9290; J0171; J0690; J1100; J2250; J2274; J2405; J2704; J3010; J3370

== ENCOUNTER 2018-12-30 21:20 | Inpatient (IN) | payer OTHER, MEDICARE, SELFPAY ==
[2018-11-08 22:43] VITALS: BMI 38.4
[2018-12-30 23:35] VITALS: BP 148/79; PULSE 72; RESP 18; TEMP 36.6; O2SAT 97
[2018-12-30 23:51] VITALS: BMI 41.9
[2018-12-31] MEDS: ONDANSETRON 4 MG/2 ML INJ IV (00:04)
[2018-12-31] MEDS: hydrOXYzine pamoate 25 MG CAPSULE 50 MG PO ×3 (00:31→18:57)
--- NOTE | 2018-12-31 01:22 | PC.NURSE ---
2335- Pt arrived from [facility] via stretcher. Orders for bedrest due to R femur fracture, pt transferred to bed via slide board. C/O nausea w/ emesis x2. Pt repositioned w/ R leg supported and ice applied to leg. 0020- Indwelling brown catheter placed for prolonged immobilization, pt tolerated well w/ 600cc urine output initially. IV Zofran given for nausea. MD Stewart called regarding regular diet order & pt request for PO Vistaril. 0040- New orders received, pt will be regular diet until further notice. PO Vistaril given for R leg muscle spasms. 0150- Pt had another episode of projectile emesis. Moving bed slowly and trying not to reposition too frequently. 0320- Pt refused SED's while sleeping.
[2018-12-31] MEDS: OXYCODONE IR 5 MG TABLET PO ×3 (01:50→08:38)
[2018-12-31 03:39] VITALS: BP 146/79; PULSE 74; RESP 18; TEMP 36.7; O2SAT 97
[2018-12-31] MEDS: HYDROMORPHONE 2 MG INJ 0.5 MG IV ×4 (04:00→19:43)
[2018-12-31 05:30] LABS: Hematocrit 32.1 % (36-46); Hemoglobin 10.5 g/dL (12.0-16.0); Mean Corpuscular HGB Conc 32.9 % (30-36); Mean Corpuscular Hemoglobin 29.8 PG (26-34); Mean Corpuscular Volume 90.8 fL (80-100); Platelet Count 302 X10^3/uL (150-400); Red Blood Cell Count 3.53 X10^6/uL (4.0-5.2); Red Cell Distribution Width 13.1 % (11.6-14.8); White Blood Cell Count 14.3 X10^3/uL (4.5-11.0)
[2018-12-31] MEDS: SODIUM CHLORIDE 0.9% FLUSH 10 ML IV ×2 (08:37→22:03)
[2018-12-31] MEDS: ACETAMINOPHEN 325 MG TABLET 975 MG PO ×3 (08:37→22:03)
[2018-12-31] MEDS: DOCUSATE 100 MG CAPSULE PO ×2 (08:38→22:03)
[2018-12-31 09:04] VITALS: BP 135/79; PULSE 68; RESP 16; TEMP 36.9; O2SAT 98
--- NOTE | 2018-12-31 09:05 | PC.NURSE ---
Addendum entered by Jacobo Moreira R.N. 12/31/18 13:13: report given to adriana Strickland who is taking over care. Addendum entered by Jacobo Moreira R.N. 12/31/18 11:32: patient refuses scd's. rationale explained. patient continues to refuse. states she will perform her ankle waving. patient pleasantly demonstrates particularity in her needs and wants. Original Note: SHIFT NOTE: PATIENT RATES PAIN TO RIGHT HIP 1-2/ WHEN SHE DOESN'T MOVE. STATES PAIN IS SEVERE W/ ANY MVMT. GIVEN TYLENOL AND OXYCODONE 5MG. PATIENT DENIES NAUSEA THIS AM. SLOWLY EATING BREAKFAST. DR. POLO IN TO SEE PATIENT. STATES PATIENT WILL START LOVENOX TODAY AND TOMORROW AND THEN HAVE SURGERY WEDNESDAY WITH DR. DAMICO.
--- NOTE | 2018-12-31 09:20 | P.HP_ITS ---
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 Makenzie Salgado approximately 6 weeks ago. Yesterday she fell while walking with her cane in [place]. She was unable to rise. She was seen at [facility] ED and radiographs revealed a comminuted right periprosthetic femoral fracture. I was contacted from the ED and accepted transfer to [facility] for definitive management of the fracture. This is an interval history and physical, the patient reports she has had no major changes medically since her discharge for her hip replacement. Patient History Medical History BCC (basal cell carcinoma) (Acute) Benign positional vertigo (Acute) Concussion (Acute) HLD (hyperlipidemia) (Acute) Hx of ectopic (Acute) Pelvic fracture (Acute) Periodontal disease (Acute) Right foot drop (Acute) Surgical History Hx of appendectomy (Acute) S/P cervical spinal fusion (Acute ~1991) Status post bilateral cataract extraction (Acute) Social History household members: none Smoking Status: Never smoker alcohol intake: current Family & Social History Social History: household members none Prior Living Arrangements House Safety & Behavioral: Feels Safe in Current Yes Environment Been Physically Hurt or No Threatened By a Person Suicidal Ideation Description None Suicide Plan Description No Plan Tobacco & Substance use: Smoking Status Never smoker alcohol intake current alcohol intake frequency a few times a week Substance Use Type does not use Meds Home Medications Medication Instructions Recorded Confirmed Type acetaminophen [Tylenol Extra 1,000 mg PO TID 10/26/18 12/31/18 History Strength] ibuprofen 800 mg PO TID 10/26/18 12/31/18 History aspirin 81 mg PO BID #0 tab 11/10/18 12/31/18 Rx hydromorphone [Dilaudid] 2 mg PO Q4-6H PRN #15 tab 11/10/18 12/31/18 Rx hydroxyzine pamoate 25 mg PO Q6HR PRN #0 cap 11/10/18 12/31/18 Rx oxycodone 5 mg PO Q4H PRN #0 tab 11/10/18 12/31/18 Rx Allergies Allergy/AdvReac Type Severity Reaction Status Date / Time latex Allergy Mild Rash Verified 11/08/18 09:26 Review of Systems Review of Systems The patient denies any loss of consciousness, chest pain or other potential cardiac causes for her fall. Otherwise she denies any positive review of systems except right hip pain and inability to stand after the fall. She reports she was having a relatively uncomplicated postoperative course up until this point. All systems reviewed & are unremarkable except as noted in HPI and below Exam Vital Signs (past 8 hours): - 12/31/18 03:39 12/31/18 09:04 Temperature 98.1 F 98.5 F Pulse Rate 74 68 Respiratory Rate 18 16 Blood Pressure 146/79 H 135/79 Pulse Oximetry 97 98 Narrative Exam Narrative: The patient is an obese older woman resting comfortably in bed. HEENT examination is normocephalic atraumatic. Chest is clear to auscultation. Cardiac exam is regular rate and rhythm, S1 and S2 are normal. There are no significant rubs murmurs or gallops. Abdomen is obese, nontender with normal abdominal bowel sounds. Extremities examination is notable for the right lower extremity. This is in a position of extreme external rotation and mild flexion of the hip. As result of this positioning I am not able to examine her prior incision. Calf is soft. Light touch and motion are intact in the right foot. She has palpable dorsalis pedis and posterior tibial pulses. Objective Labs Result Diagrams: 12/31/18 04:56 Labs: Laboratory Results - last 24 hr 12/31/18 04:56 WBC 14.3 H RBC 3.53 L Hgb 10.5 L Hct 32.1 L MCV 90.8 MCH 29.8 MCHC 32.9 RDW 13.1 Plt Count 302 Radiographs: X-rays from [facility] Emergency Department are reviewed. There is a comminuted proximal femoral fracture and unstable hip stem on the right. There is no hip dislocation. Assessment & Plan Assessment & Plan narrative: The patient is an obese 68-year-old patient who had a right total hip replacement performed approximately 6 weeks ago. She had a fall and has suffered a comminuted proximal femoral fracture. This will require revision of the femoral stem to a long stem prosthesis and likely cerclage wiring potentially with a plate. I have contacted her operating surgeon Dr. Makenzie Salgado, and she is aware of the patient and planning to perform this surgery on Wednesday afternoon. This will allow the delivery of the appropriate revision stem prosthetics. In the interim we will obtain the laboratory values obtained at the emergency room last night for review. The patient will remain on bedrest until her surgery on Wednesday. We will do DVT prophylaxis during this time period with sequential compression devices and Lovenox. We will stop the Lovenox after the Wednesday morning dose to have her ready for surgery on Wednesday. Time Spent With Patient Time with patient: 15-24 minutes Quality VTE Deep Vein Thrombosis/Pulmonary Embolism Present on Admission: No
[2018-12-31] MEDS: ENOXAPARIN 40 MG/0.4 ML SYRINGE SUBCUT (09:58)
[2018-12-31] MEDS: OXYCODONE IR 10 MG TABLET PO ×4 (11:21→23:35)
[2018-12-31 13:15] VITALS: BP 136/63; PULSE 63; RESP 16; TEMP 37.4; O2SAT 94
--- NOTE | 2018-12-31 13:55 | CM.DANOTE ---
Patient is a 68 year old female who admitted on 12/30/18 for Right Hip Fx. Pt has [employer] and M[employer] A for insurance and her PCP is Dr. Desai. EMR was reviewed. Per Prashanth ZAMORA, pt scheduled for hip surgery tomorrow 01/01/19 and was a direct admit from [facility]. Pt was recently admitted to [facility] for Right Total Hip Arthro and discharged home with outpt PT on 11/09/18. Pt's insurance [employer] was a barrier to HH as they are not contracted with any local HH agencies ([facility], [facility], [facility], [facility] were all attempted and not an option). SW met bedside with pt and explained role and updated white board and pt confirms that she lives at home alone in [place] with supportive neighbors who have been helping with assist and her dog and pt states she was making great progress after d/c home with outpt PT until she fell on her concrete and broke her hip. 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 Pt states that she has concerns with d/c to home this time and is anticipating possible need for SNF rehab. SW provided the SNF Choice List and discussed the need to determine if any local SNF's are contracted with [employer] or willing to do one time contract if SNF needed. Pt states her preference would be [facility] or [facility] due to proximity to her home. SW called [facility] admissions and spoke to their weekend staff who looked at their insurance contract book and [facility] does not appear to be contracted with [employer]. CAR called [facility] admissions phone and left a message inquiring if they are contracted with [employer] or willing to attempt a one time contract. CAR called pt's previously assigned [employer] CM Christi ([phone]) and message stated that the CM would be out of the office until Feb 25, 2019. Plan: SW to follow closely after pt surgery tomorrow 01/01/19 and PT/OT eval to determine if pt safe for home or needing SNF. SW to follow for return call from [facility] if they are contracted with insurance and to determine who is pt's insurance CM for coordination in d/c planning needs and contracted facilities. SELINA Farias Discharge Planning/Care Management CM Discharge Assessment Start: 12/31/18 13:53 Freq: Status: Active Protocol: Document 12/31/18 13:53 BF (Rec: 12/31/18 13:55 BF [id number]) Discharge Planning Assessment Assigned Cementer Hand SELINA Ferguson DPOA/Assigned Designee Name Work Boss, retired RN Advance Directives? Yes Advance Directives on File No History Provided By Patient Medical Record Has Patient been admitted in last 30 Yes days? Comment Recently discharged home after Right Total Hip Arthro on Prior Living Arrangements House Household Members none Type of transporation used prior to Drives own vehicle admit Independent with ADL's Yes Is patient alert and oriented? Yes Caregiver for Another No Community Services used prior to Physical Therapy admission: Patient/Family Preference Residential Facility Comment Waiting for surgery tomorrow and PT/OT eval to determine likely need for SNF Discharge Plan Residential Facility Community Services Physical Therapy Occupational Therapy Transportation Arrangement If SNF then facility to transport Referrals Initiated Residential Medicare Choice List Provided Yes SNF/HH Preference [facility] or [facility] for proximity to home Has Agency SNF been contacted Yes Whiteboard Updated in Patient Room with Yes name and ext. # of Cementer Hand Review Status In Process Please Provide Date Initial DC 12/31/18 Assessment Was Performed Next Review Type Continued Stay Review
--- NOTE | 2018-12-31 14:27 | PC.NURSE ---
rec'd Pt from [facility].Discussed plan of care with Pt and Jacobo. Pt wants to nap now and get pain med at 14:21. Pt given pain med at 14:21, repositioned to comfort and given ice packs for hip.
[2018-12-31 15:15] VITALS: BP 150/78; PULSE 59; RESP 17; TEMP 36.6; O2SAT 95
[2018-12-31 19:50] VITALS: BP 125/69; PULSE 67; RESP 16; TEMP 37.1; O2SAT 90
[2018-12-31 23:30] VITALS: BP 127/58; PULSE 61; RESP 16; TEMP 37; O2SAT 92
--- NOTE | 2018-12-31 23:32 | PC.NURSE ---
pt c/o R.hip and back discomfort, medicated with dilaudid and vistaril. pain down to 2/10. pt strongly refused scds. pt reports she has been doing ankle pumps.
--- NOTE | 2019-01-01 02:20 | PC.NURSE ---
Pt. cont. to declined to wear her SCD's. States I'm moving my feet & doing my legs exercise in bed. Requested Vistaril @ 2330, but too early for a dose of Vistaril. When I rechecked her @ 0050, she asleep, will monitor & admin. Vistaril when she wakes up.
[2019-01-01] MEDS: SODIUM CHLORIDE 0.9% FLUSH 10 ML IV ×3 (03:30→20:28)
[2019-01-01] MEDS: HYDROMORPHONE 0.5 MG INJ IV ×4 (03:30→20:46)
[2019-01-01] MEDS: hydrOXYzine pamoate 25 MG CAPSULE 50 MG PO ×3 (03:36→16:22)
[2019-01-01 03:47] VITALS: BP 123/73; PULSE 69; RESP 16; TEMP 36.8; O2SAT 96
[2019-01-01] MEDS: OXYCODONE IR 10 MG TABLET PO ×6 (03:55→21:22)
--- NOTE | 2019-01-01 04:39 | PC.NURSE ---
Pt. cont. to declined her SCD's & declined assistance to reposition. Requested her medications all at the same time, Dilaudid 0.5 mg. IVP, 50 mg. Vistaril PO & 10 mg. Oxycodone. States I been having all those medications & I'm doing fine. Will monitor.
[2019-01-01] MEDS: DOCUSATE 100 MG CAPSULE PO ×2 (08:11→20:27)
[2019-01-01] MEDS: ACETAMINOPHEN 325 MG TABLET 975 MG PO ×3 (08:11→20:27)
[2019-01-01] MEDS: ENOXAPARIN 40 MG/0.4 ML SYRINGE SUBCUT (08:11)
[2019-01-01 08:12] VITALS: BP 145/78; PULSE 68; RESP 18; TEMP 37.1; O2SAT 94
--- NOTE | 2019-01-01 09:00 | PC.NURSE ---
Addendum entered by Ramila Braden R.N. 01/01/19 13:34: After discussion with , pt agreed to move and wear SCD's during the day after she received a dose of dilaudid. this was provided to pt and she moved with 2 CNAs to assist her by turning her in bed to a side and placing SCDs on her legs. On an hourly check, pt stated she was still in pain although decreased to 4/10 and would like her next dose of oxy. This was provided to pt as it was available. on pain reassessment, she stated she had no pain at that time. Pt was allowed to sleep afterwards. Original Note: Day Shift Pt informed VASCULAR TECHNOLOGIST that she needed her medication and she needed all of it quickly or it won't work. Went and spoke with pt, explained that she could have oxycodone now (0810), vistaril around 0930 and dilaudid only for breakthrough pain. She accepted explanation. did not have SCD on, refused to let anything touch her R leg except the sheet. Stated that when the Dr came he could move her leg but we would not move it. Her leg is laying on the bed, externally rotated. Dorsi/Plantar flexion intact, dorsi weak. Will continue to monitor.
--- NOTE | 2019-01-01 10:28 | P.PN_ITS ---
Subjective Date Patient Seen: 01/01/19 Time Patient Seen: 10:23 Interval history: Patient reports that she is in significant pain. She reports she believes the nurses are withholding her medications. Exam Vital Signs (past 8 hours): - 01/01/19 03:47 01/01/19 08:12 Temperature 98.3 F 98.8 F Pulse Rate 69 68 Respiratory Rate 16 18 Blood Pressure 123/73 145/78 H Pulse Oximetry 96 94 Oxygen Flow Rate 0 Narrative Exam Narrative: Right lower extremity remains externally rotated and slightly flexed at the hip. Calf is soft. Light touch and motion are intact in the right foot. Pulses are also intact. Objective Labs Result Diagrams: 12/31/18 04:56 Assessment & Plan Assessment & Plan narrative: The patient has a comminuted periprosthetic femoral fracture on the right. By the report of the nursing staff she has refused to be repositioned to prevent bedsores, has refused to wear her sequential compression devices for DVT prophylaxis and has been generally derogatory towards nursing staff. When examined today, the patient is in fact, basically in exactly the same position as when she was seen yesterday. The plan remains that she be prepared for revision hip replacement with ORIF of her fracture tomorrow afternoon. I have made her NPO after 8:00 a.m. tomorrow for this surgery. We also will schedule perioperative antibiotics for her. I have had an extended talk with her today about preventing bedsores and appropriate DVT prophylaxis. I have gone over her pain control regimen with her in detail. SUPERVISOR WATERPROOFING machines are not currently available and are not an option. I have told her that she needs to be repositioned intermittently in order to prevent skin breakdown. We have discussed the fact that the sequential compression devices are a useful adjunct to the Lovenox that she received yesterday and today. She appears to understand. Time Spent With Patient Time with patient: less than 15 minutes Quality VTE Deep Vein Thrombosis/Pulmonary Embolism Present on Admission: No
--- NOTE | 2019-01-01 12:40 | CM.DPC ---
Addendum entered by Ilana Salgado 01/01/19 12:48: Correction from below. CM team needs to confirm with [facility] on 01-02-19 on whether or not they can accept and take [employer]. Original Note: DCP/continued: Reviewed chart. Per staff in AM rounds, patient scheduled for surgery tomorrow 01-02-19. Received call from [facility] and they report that they can accept at time of d/c (pending [employer] authorization). CM team will check into obtaining [employer] authorization for SNF after surgery and SNF deemed appropriate. Patient previously hospitalized for hip surgery in October 2018, after that surgery patient went home with outpatient follow up. Patient prefers SNF this time because she resides alone and does not have a lot of support. CM team to follow closely. P: Home vs. SNF pending recommendations and insurance. [facility] have reviewed and can accept if [employer] authorization can be received. SELINA Purcell
[2019-01-01 14:15] VITALS: BP 144/75; PULSE 82; RESP 15; TEMP 37.6; O2SAT 95
[2019-01-01 17:00] VITALS: BP 140/73; PULSE 80; RESP 18; TEMP 36.9; O2SAT 93
[2019-01-01 21:00] VITALS: BP 152/74; PULSE 72; RESP 18; TEMP 36.9; O2SAT 94
[2019-01-02] VITALS (13 sets, daily range): BP systolic 108–152; BP diastolic 62–89; PULSE 63–118; RESP 12–17; TEMP 37.3–37.6; O2SAT 92–98; BMI 42.3
[2019-01-02] MEDS: OXYCODONE IR 10 MG TABLET PO ×4 (01:16→14:28)
[2019-01-02] MEDS: hydrOXYzine pamoate 25 MG CAPSULE 50 MG PO ×3 (01:18→13:04)
[2019-01-02] MEDS: HYDROMORPHONE 0.5 MG INJ IV ×4 (02:03→11:10)
[2019-01-02] MEDS: ACETAMINOPHEN 325 MG TABLET 975 MG PO (08:09)
[2019-01-02] MEDS: DOCUSATE 100 MG CAPSULE PO (08:09)
[2019-01-02] MEDS: SODIUM CHLORIDE 0.9% FLUSH 10 ML IV (08:12)
--- NOTE | 2019-01-02 08:39 | PM.PN.1 ---
Subjective Date Patient Seen: 01/02/19 Time Patient Seen: 08:39 Interval history: Hospital day 3 with right proximal femur comminuted periprosthetic fracture secondary to fall. She has been stable mainly with pain management. Patient has not wanted to do much moving around. She has been getting oxycodone 10 mg and IV and Dilaudid. Patient is scheduled to have her revision hip surgery and ORIF done at about [address] Salgado. NPO after breakfast. Patient states she lives alone with her dog. The discharge planners are looking into SNF placement with possible [facility]. Exam Vital Signs (past 8 hours): - 01/02/19 00:50 01/02/19 01:16 01/02/19 02:24 Temperature 99.6 F 99.3 F 99.3 F Pulse Rate 74 Respiratory Rate 16 Blood Pressure 145/78 H Pulse Oximetry 98 01/02/19 06:56 01/02/19 06:57 Temperature 99.5 F 99.5 F Pulse Rate 63 Respiratory Rate 17 Blood Pressure 146/89 H Pulse Oximetry 97 Oxygen Flow Rate 0 Narrative Exam Narrative: Alert, oriented in no acute distress lying in bed. Legs. No calf pain or swelling. Pulses symmetrical. Objective Labs Result Diagrams: 12/31/18 04:56 Assessment & Plan Assessment & Plan narrative: Plan: Patient be NPO after morning breakfast. May use pain medication with sip of water. Scheduled for right hip surgery later this afternoon by Dr. Salgado. Quality VTE Deep Vein Thrombosis/Pulmonary Embolism Present on Admission: No
--- NOTE | 2019-01-02 11:09 | CM.DPC ---
DCP/continued: Reviewed chart. Per Ortho team, patient scheduled for surgery this afternoon. Current anticipated d/c plan is SNF when stable. Received call from Maria T at [facility]# [phone] she reports that patient will most likely be eligible for SNF but that accepting facility needs to go through provider services at [phone]. Maria T confirms that contracted providers in [facility] are: [facility], [facility], and [facility]. Additional contracted providers are in [place] and [place]. SUPERVISOR FRUIT GRADING met briefly with patient this AM. Notified her that [facility] is not contracted. Patient requests that we check into [facility]. Placed call to admit at [facility] and clinical faxed for review. Patient requesting facility brochure but none available. Provided patient with name/address/phone number of facility. P: Pending. [facility] reviewing for admit. Surgery today. SELINA Purcell
--- NOTE | 2019-01-02 11:13 | PC.NURSE ---
Patient is High Maintenance, requires lots to excessive attention with minute details. Repositioning of any kind must be done in the sliest amounts, either in HOB or leg adjustments.
[2019-01-02] MEDS: CEFAZOLIN VIAL 2 GM in SODIUM CHLORIDE 0.9% 100 ML 200 ML IV ×2 (14:05→21:18)
--- NOTE | 2019-01-02 14:25 | PC.NURSE ---
Pt reports moderate to severe pain to right hip, groin and pelvic girdle with PO and IV pain meds; right lower extremity rotated externally, stabilized and elevated with pillow; ppp; c/m/s positive with limited movement to RLE; SCD only active to LLE per patient request; Ls clear, patient reminded to cough, deep breath, O2 RA=98%; Weiss draining clear, yellow to gravity; high fall risk due to history of falls, but pt request blue gown in place of yellow gown due to skin irritation; patient requests door and curtain closed completely and prefers ot not have bed alarm activated; safety protocals explained but requests satisfied given patient's orientaiton; patient using call light, as needed
[2019-01-02] MEDS: LACTATED RINGERS 1,000 ML 42 ML IV ×3 (16:33→21:21)
[2019-01-02] MEDS: VANCOMYCIN 1,000 MG/200 ML PIGGYBACK 200 MG IV ×2 (16:48→17:49)
[2019-01-02] MEDS: CEFAZOLIN 2 GM/100 ML FROZ.PIGGY IV (17:40)
--- NOTE | 2019-01-02 18:15 | SUR.OPER ---
Lateral on padded OR bed. Gel axillary roll. Arms secured on padded armboard with pillow supporting top arm. Padded hip positioner braces x4 - anterior and posterior chest and pelvis. Additional gel pad used anterior pelvis. Gel pad under bottom leg from knee to foot and secured with tape over sheet.
[2019-01-02] MEDS: BUPIVACAINE 0.5% W/ EPI (PF) VIAL 30 ML INJ (21:56)
[2019-01-02] MEDS: BUPIVACAINE LIPOSOME 266 MG/20 ML VIAL INJ (21:57)
--- NOTE | 2019-01-02 22:27 | DI.RAD.S_ITS ---
PROCEDURE: XR HIP W PEL IF DONE RT 4V INDICATIONS: INTEROPERATIVE FEMUR FRACTURE REPAIR TECHNIQUE: 20 intraoperative fluoroscopic view(s) of the hip acquired. COMPARISON: [facility], [place], XR HIP W PEL IF DONE RT 2V, 01/02/2019, 23:24. [facility], [place], XR HIP W PEL IF DONE RT 2V, 11/08/2018, 15:21. FINDINGS: Intraoperative fluoroscopic images of right hip shows revision and internal fixation of patient's known right total hip arthroplasty with periprosthetic fracture in proximal femoral shaft. Alignment of right hip is anatomic. IMPRESSION: Fluoroscopy guidance was provided intraoperatively for internal fixation of reviously noted right proximal femoral periprosthetic fracture. Dictated by: Ke Helton M.D. on 01/03/2019 at 10:03 Approved by: Ke Helton M.D. on 01/03/2019 at 10:04
--- NOTE | 2019-01-02 22:27 | DI.RAD.S_ITS ---
PROCEDURE: XR HIP W PEL IF DONE RT 2V INDICATIONS: POST OPERATIVE OPEN REDUCTION INTERNAL FIXATION FEMUR FRACTURE TECHNIQUE: 2 view(s) of the hip acquired. COMPARISON: [facility], [place], XR HIP W PEL IF DONE RT 4V, 01/02/2019, 19:35. FINDINGS: Bones: Patient is status post right hip arthroplasty revision and fixation of previously noted periprosthetic fracture of proximal femur, with hardware components in expected positions. The hip joint appears congruent. The visualized bony structures appear intact. Soft tissues: Overlying postoperative changes are noted. No suspicious soft tissue densities. IMPRESSION: Post ORIF changes in right proximal femoral shaft with anatomic alignment. Dictated by: Ke Helton M.D. on 01/03/2019 at 10:06 Approved by: Ke Helton M.D. on 01/03/2019 at 10:07
--- NOTE | 2019-01-02 23:19 | P.OP_ITS ---
Operative Date/Time/Diagnoses Date of procedure: 01/02/19 Time of procedure: 17:10 Pre-op diagnosis: complex right femur fracture with right femoral stem (periprosthetic femur fracture) Post-op diagnosis: same Procedure & Clinicians Procedure: 1. revision right femoral stem 2. open reduction internal fixation complex right proximal femur fracture Same procedure as scheduled: Yes Indications: This is a [age] year old female who has a history of a right total-hip. She fell while gardening and noted the acute onset of severe right hip pain. She had a recent right total hip arthroplasty. Her x-rays showed of comminuted periprosthetic right proximal femur fracture with subsidence of her femoral stem she is brought the operating room for repair is indicated. Surgeon: Makenzie Salgado Gas Appliance Servicer Helper: Joo Farris Anesthesia Type: General and Spinal Operative Notes Findings: Comminuted right femur fracture, some early bony ingrowth into the prosthesis, acceptable overall reduction and alignment, adequate stability. Closure Type: primary Specimen(s): other (culture) Prosthetic devices, grafts, tissues, transplants, or devices: Khanh/Biomet ROOSEVELT stem [id number] distal stem, 50 standard A proximal body, 32mm +0 head, 4 cable ready 1.8mm cobalt chrome cerclage wires. Applied: drain(s) Estimated Blood Loss (mL): 500 Blood products transfused: none Procedure in detail: The patient was seen in the pre-operative area, where the patient identified the right hip as the operative site and this was marked with my initials. The patient received pre-operative antibiotics and was taken to the operating room and placed on the operative table in the left lateral decubitus position after satisfactory anesthesia. A multimedia production assistant out was performed. The right leg was prepared from the ankle to the iliac crest with ChloroPrep in the usual fashion and draped through sterile drapes. The hip was approached through an approximately 30 cm incision centered over the greater trochanter and curving gently posteriorly incorporating the patient's previous incision it went proximally. This was carried sharply to the fascia patrick, which was divided and retracted with a self retaining retractor. The incision was extended distally in preparation for fixation of the femoral shaft fracture. The fascia was incised and the vastus lateralis was retracted anteriorly and a cable was passed around the femoral shaft and lightly tightened. The short external rotators were incised and the capsulomuscular flap was tagged for later repair. The hip was dislocated. The hip was quite tight and it was difficult to get adequate traction on the leg with the femoral shaft fracture and to dislocate the hip. Combination of a bone hook longitudinal traction flexion and external rotation did allow dislocation of the hip. The hip was then carefully mobilized and the head was removed with a bone tamp. It was difficult to get hold of the femoral stem as it was inherently unstable in the bone due to the fracture. We used a combination of a bone tamp, vice automotive worker and multiple different extraction devices to eventually get hold of the femoral prosthesis and remove it. It was somewhat tedious and difficult. Retractors were placed around the femur. The canal was visualized and a canal finding Reamer was carefully advanced down into the femur. Fluoro was brought in and it was noted that the fracture was not completely reduced and the canal Reamer was exiting at the fracture site along the long spiral. Multiple bone clips longitudinal traction and additional cerclage wires were used to further reduce the femur. It was still difficult to advance the canal Reamer despite acceptable reduction on AP and oblique images. At that point it was decided to pass a guidewire distally and to do flexible reaming. Guidewire was passed and then confirmed fluoroscopically. The femur was reamed up to a size 15 with the flexible reamers. A guidewire was then removed and straight reamers were used to ream up to a size 16. A 16 x 190 distal stem was selected. We used fluoroscopy today further define the anticipated length of the prosthesis make sure there was adequate fixation distal to the fracture site in the diaphysis. The distal stem was impacted and noted to be stable. There was good chatter for about 3 cm of femur in the diaphysis with a 16 Reamer. We over reamed the proximal fragment for an a body which appeared appropriate in the proximal femur. Initially we attempted to place a 70 mm proximal body but that appeared to be quite a bit too long. Ultimately a 50 body was selected. Trial reduction initially with a -6 head showed acceptable offset and leg lengths. It was felt that we could probably add at least 1 or 2 neck lengths. Additional cerclage wires were passed around the greater trochanter and along the fracture. The final proximal body piece was inserted and pounded into the Blas taper and then locked. We did a repeat trial reduction with a -3 femoral head and felt that we could probably go up to a 0. She had acceptable overall leg lengths was stable in maximal extension external rotation had fairly normal Shuck and at flexion to 90? she is stable to about 60-70 degrees of internal rotation. She was stable at 45? with internal rotation to 70-80 degrees. The patient was stable in the position of sleep, of squatting, and could be put through a range of motion with 45 degrees internal rotation without dislocation. This was felt to be satisfactory and the appropriate components were opened, and the trials were removed. Final fluoroscopic images showed acceptable overall position and the cerclage wires were meticulously tightened and crimped and cut. The hip was meticulously irrigated with normal saline. The capsulomuscular flap was then repaired to the greater trochanter. The short external rotators were repaired with a nonabsorbable suture. A deep drain was placed and brought out anteriorly. The fascia patrick was closed with Vicryl. The subcutaneous layer was closed with barbed sutures and skin nathan. A Rahul dressing was applied and the patient was taken to recovery having tolerated the procedure well. Complications: none Condition: stable Disposition: Acute Care Plan for aftercare: 1. 50lbs right lower extremity, 2. posterior hip precautions. 3. Rehab until safe with partial weight bearing. 4. no abductor strengthening.
[2019-01-03] VITALS (10 sets, daily range): BP systolic 104–149; BP diastolic 55–73; PULSE 73–102; RESP 16–26; TEMP 36.4–37.4; O2SAT 92–98
--- NOTE | 2019-01-03 00:45 | PC.NURSE ---
Shift note: Pt arrived back on unit 0005 accompanied by PACU and surgical nurse. Pt very particular about her personal items and delayed her assessment to make sure her personal items were still present, pt requested to have her gown removed and to be naked under a single sheet, at one point accused LUIZ Vigil of putting her paperwork in his pocket and demanded to see what it was (his vital sheet). Assessment notable for tachycardia and mild diaphoresis, pt reports sensation in legs is better than in arms, denies numbness or tingling to bilateral feet or legs, able to perform foot waves. Pt has a mauricio dressing with shadow drainage and a hemovac, also noted bruise to left knee that pt reports is new and was not previously documented on body image. Pt denied nausea/vomiting and pain at time of assessment. Will continue to monitor for pain and safety, pt's SCDs on and bed alarm not activated d/t pt's request, brown draining to gravity.
--- NOTE | 2019-01-03 01:07 | PC.NURSE ---
after i took vitals i put my paper in pocket patient questioned and accused me of stealing something i showed it was my paperwork but she was still skeptical i recomend people take someone into room with them. Also patient doesnt like polyester so requested to be naked 01/03/19
[2019-01-03] MEDS: CEFAZOLIN 2 GM/100 ML FROZ.PIGGY IV ×2 (01:11→08:15)
[2019-01-03] MEDS: LACTATED RINGERS 1,000 ML 125 ML IV (01:12)
[2019-01-03] MEDS: diphenhydrAMINE 50 MG/ML VIAL 25 MG IV (02:58)
[2019-01-03] MEDS: OXYCODONE IR 5 MG TABLET PO ×2 (04:03→06:52)
[2019-01-03 05:34] LABS: Hematocrit 26.5 % (36-46); Hemoglobin 8.6 g/dL (12.0-16.0)
--- NOTE | 2019-01-03 07:43 | PM.PNPO.1 ---
Subjective Date Patient Seen: 01/03/19 Time Patient Seen: 07:43 Interval history: Pain 5/10. Denies fever chills. No nausea vomiting. No dizziness or chest pain. Exam Vital Signs (past 8 hours): - 01/02/19 23:45 01/02/19 23:55 01/03/19 00:30 Temperature 99.3 F 99.3 F 98.2 F Pulse Rate 103 H 99 H 102 H Respiratory Rate 15 12 18 Blood Pressure 124/67 124/67 149/68 H Pulse Oximetry 94 94 94 01/03/19 01:06 01/03/19 02:00 01/03/19 03:11 Temperature 97.5 F L 97.7 F 98.2 F Pulse Rate 93 H 84 82 Respiratory Rate 18 18 17 Blood Pressure 110/57 L 120/68 104/55 L Pulse Oximetry 96 92 94 Oxygen Delivery Method Nasal Cannula Oxygen Flow Rate 2 Narrative Exam Narrative: A 68-year-old female resting comfortably in bed in no apparent distress. Rahul dressing on and functioning. Right lower extremity is cold compared to the left. Dorsalis pedis and posterior tibialis pulses are not palpable. Sensation intact to light touch distal right lower extremity. Motor function is intact distal right lower extremity. Objective Labs Result Diagrams: 01/03/19 04:55 Labs: Laboratory Results - last 24 hr 01/03/19 04:55 Hgb 8.6 L Hct 26.5 L Assessment & Plan Post-op (1) Postoperative anemia due to acute blood loss: Postoperative Procedures Operation Date: 01/02/19 15:00 Actual Procedures Side Surgeon p Revision of Femoral stem, ORIF femur Right Makenzie Salgado MD Postoperative day: 1 Postoperative status: doing well and anemia (Postop anemia) Postoperative status narrative: Patient stable status post revision right femoral stem, open reduction internal fixation complex right proximal femur fracture. Max 50 lb weight-bearing right lower extremity, posterior hip precautions, rehab until safe with partial weight-bearing, no abductor strengthening. Postoperative plan narrative: Max 50 lb weight-bearing right lower extremity, posterior hip precautions, rehab until safe with partial weight-bearing, no abductor strengthening. Time Spent With Patient less than 15 minutes Quality VTE Deep Vein Thrombosis/Pulmonary Embolism Present on Admission: No
[2019-01-03] MEDS: ASPIRIN EC 81 MG TABLET PO ×2 (08:14→20:57)
[2019-01-03] MEDS: OXYCODONE/ACETAMINOPHEN 5/325 TABLET 1 TAB PO (08:15)
[2019-01-03] MEDS: DOCUSATE 100 MG CAPSULE PO ×2 (08:15→20:57)
[2019-01-03] MEDS: HYDROMORPHONE 2 MG TABLET PO (10:07)
--- NOTE | 2019-01-03 10:35 | PT.IIE ---
Current Diagnoses Acute posthemorrhagic anemia (12/30/18) Fracture of unspecified part of neck of right femur, initial encounter for closed fracture (12/30/18) Surgery Performed Operation Date: 01/02/19 15:00 Actual Procedures p Revision of Femoral stem, ORIF femur(Right) - Makenzie Salgado MD Surgical History (Last Reviewed 12/31/18 @ 09:13 by Yovany Stewart MD) Hx of appendectomy (Acute) S/P cervical spinal fusion (Acute ~1991) Status post bilateral cataract extraction (Acute) Medical History (Last Updated 01/03/19 @ 07:57 by BRYON GonsalvesC) Postoperative anemia due to acute blood loss (Acute) Morbid obesity with BMI of 40.0-44.9, adult (Acute) BCC (basal cell carcinoma) (Acute) Benign positional vertigo (Acute) Concussion (Acute) HLD (hyperlipidemia) (Acute) Hx of ectopic (Acute) Pelvic fracture (Acute) Periodontal disease (Acute) Right foot drop (Acute) Physical Therapy Inpatient Evaluation/Re-Eval M1 PT/OT-IP Prior Functional Status Start: 01/03/19 13:00 Freq: NEEDED Status: Active Protocol: Document 01/03/19 10:35 AB (Rec: 01/03/19 13:14 AB [id number]) Medical Review Prior Functional Status Medical History Reviewed Yes Communication able to make needs known Mobility and Gait pt stated that she is modified independent with all mobilities and ambulation using a SPC Prior Functional Level (Other details) pt stated that she had R Juni last 11/08/18 and went to rehab and went home. stated that she used a FWW first day after d/c but has to return the FWW to her neighbor and has used a SPC since then. pt s/p fall and sustained a R proximal femur comminuted periprosthetic fx and underwent ORIF. Social History Household Members none Living Arrangements House Number of Floors (Floors) One Floor Number of Stairs To Enter/Railing? 3 steps to enter without rails Home Environment High Toilet Walk in Shower Home Equipment Straight Cane Hand Held Shower Grab Bars Near Toilet Grab Bars In Shower Employment Status Retired M2 PT-IP Current Condition Start: 01/03/19 13:00 Freq: NEEDED Status: Active Protocol: Document 01/03/19 10:35 AB (Rec: 01/03/19 13:14 AB [id number]) Physical Therapy Current Condition Current Condition Evaluation Date 01/03/19 Treatment Diagnosis R prox femur comminuted periposthetic fx s/p ORIF/ h/o JUNI; diff in walking Onset Date 12/30/18 Precautions Posterior Hip Precautions No Hip Flexion > 90 degrees No Hip Internal Rotation No Hip Adduction Weight Bearing Status Weight Bearing Status Partial Weight Bearing Allowed Weight Bearing Amount (enter % RLE 50# weight bearing or #) (%) M3 PT-IP Subjective Start: 01/03/19 13:00 Freq: NEEDED Status: Active Protocol: Document 01/03/19 10:35 AB (Rec: 01/03/19 13:14 AB [id number]) Subjective Physical Therapy Visit Type Type Initial Evaluation Visit Start Time 10:35 Visit Stop Time 10:49 Total Visit Minutes 74 Number of FURNACE INSTALLER Visits 0 Physical Therapy Visit Comments Patient Comments pt agreeable to do PT but stated that she cannot sit up on the chair Therapy Pain Assessment Pain When Pain Assessed At Rest Pain Present Pain Present Pain Reported Location R hip Intensity 8 Scale Used increases with movement Pain Behaviors Guarding Holding Area Pain Management Techniques Apply Cold Re-positioning Timing of Activity with Medications M4 PT-IP Mobility and Gait Start: 01/03/19 13:00 Freq: NEEDED Status: Active Protocol: Document 01/03/19 10:35 AB (Rec: 01/03/19 13:14 AB [id number]) PT-Bed Mobility Assessment Supine to Sit Supine to Sit Maximum Assistance Head of Bed Elevated Bedrails Scooting Scooting to Edge of Bed Maximum Assistance PT-Transfer Assessment Sit to and From Stand Sit to and from Stand Maximum Assistance 2 Person Assistance Use of Upper Extremities Equipment Transfer Assistive Device Gait Belt Front Wheeled Walker Orthotic/Prosthetic Devices or Brace: No Transfers Transfer Destination Chair Transfer Technique Stand Pivot Transfer Ability Level of Assist Maximum Assistance 2 Person Assistance Use of Upper Extremities Comments Mobility Comments pt completed stand pivot transfer using FWW bed to chair max A x 2 and max cues. able to hop a little but required assistance to maintain weight bearing restriction and hip precautions. pt directs her care and can be very particular with her care and assistance given. PT-Balance Assessment Sitting Balance and Reactions Static Sitting Balance Ability Good Dynamic Sitting Balance Ability Good Standing Balance and Reactions Static Standing Balance Ability Poor Dynamic Standing Balance Ability Poor Device Used FWW M5 PT-IP Objective Assessments Start: 01/03/19 13:00 Freq: NEEDED Status: Active Protocol: Document 01/03/19 10:35 AB (Rec: 01/03/19 13:14 AB [id number]) Orientation Orientation/Cognition Level of Alertness Alert Orientation Name Place Situation Language Function Ability No Deficits Noted Safety Awareness Decreased Safety Awareness Memory Description Short Term Impaired Strength Lower Extremity Strength Assessment Bilaterally Impaired Comments Strength Comments LLE: 3+/5 RLE 3-/5 Coordination Assessment Gross Coordination Gross Coordination WNL Sensation Assessment Sensation Gross Sensation WNL Muscle Tone Muscle Tone WNL Yes M6 PT-IP Treatment Start: 01/03/19 13:00 Freq: NEEDED Status: Active Protocol: Document 01/03/19 10:35 AB (Rec: 01/03/19 13:14 AB [id number]) Physical Therapy Treatment Exercises Exercises Heel Slides Education Education Provided Precautions Weight Bearing Status Post-Op Packet Safety M7 PT-IP Assessment and Plan Start: 01/03/19 13:00 Freq: NEEDED Status: Active Protocol: Document 01/03/19 10:35 AB (Rec: 01/03/19 13:14 AB [id number]) PT Summary Assessment and Plan Potential Rehabilitation Potential Fair Status of Condition at Evaluation Evolving Summary Impairments Pain ROM Strength Balance Coordination Bed Mobility Transfers Gait Activity Tolerance Assessment Summary pt requiring 2 person assist with mobility and required assistance to maintain R hip posterior precautions and 50# weight bearing restriction. Goals Bed Mobility Goal Minimal Assistance Transfer Goal Minimal Assistance Front Wheeled Walker Gait Goal Minimal Assistance Front Wheel Walker Gait Distance 25 Days to Meet Goals 10 Frequency of Treatment Frequency Of Treatment Twice a Day Treatment Plan Physical Therapy Treatment Plan Bed Mobility Training Transfer Training Gait Training Therapeutic Exercise Balance Retraining Post Op Education Discharge Planning Hot or Cold Pack Neuromuscular Re-ed Coordination Retraining Manual Therapy Other Recommendations and Next Treatment transfers Focus Recommendations To Nursing Amount of Assist Needed 2 Person Assist Mechanical Lift Discharge Recommendations PT Discharge Recommendations SNF Rehab
--- NOTE | 2019-01-03 12:05 | PT.IPTN ---
Current Diagnoses Acute posthemorrhagic anemia (12/30/18) Fracture of unspecified part of neck of right femur, initial encounter for closed fracture (12/30/18) Surgery Performed Operation Date: 01/02/19 15:00 Actual Procedures p Revision of Femoral stem, ORIF femur(Right) - Makenzie Salgado MD Physical Therapy Treatment Note M2 PT-IP Current Condition Start: 01/03/19 13:00 Freq: NEEDED Status: Active Protocol: Document 01/03/19 10:35 AB (Rec: 01/03/19 13:14 AB [id number]) Physical Therapy Current Condition Current Condition Evaluation Date 01/03/19 Treatment Diagnosis R prox femur comminuted periposthetic fx s/p ORIF/ h/o JUNI; diff in walking Onset Date 12/30/18 Precautions Posterior Hip Precautions No Hip Flexion > 90 degrees No Hip Internal Rotation No Hip Adduction Weight Bearing Status Weight Bearing Status Partial Weight Bearing Allowed Weight Bearing Amount (enter % RLE 50# weight bearing or #) (%) M3 PT-IP Subjective Start: 01/03/19 13:00 Freq: NEEDED Status: Active Protocol: Document 01/03/19 12:05 AB (Rec: 01/03/19 13:21 AB [id number]) Subjective Physical Therapy Visit Type Type Treatment Note Visit Start Time 12:05 Visit Stop Time 12:35 Total Visit Minutes 30 Number of DRAFTING INSTRUCTOR Visits 0 Physical Therapy Visit Comments Patient Comments pt requesting to go back to bed Therapy Pain Assessment Pain When Pain Assessed At Rest Pain Present Pain Present Pain Reported Location R hip Scale Used pain scale not stated Pain Management Techniques Re-positioning Timing of Activity with Medications M4 PT-IP Mobility and Gait Start: 01/03/19 13:00 Freq: NEEDED Status: Active Protocol: Document 01/03/19 12:05 AB (Rec: 01/03/19 13:21 AB [id number]) PT-Bed Mobility Assessment Sit to Supine Sit to Supine Total Assistance 2 Person Assistance PT-Transfer Assessment Sit to and From Stand Sit to and from Stand Maximum Assistance 2 Person Assistance Use of Upper Extremities Equipment Transfer Assistive Device Gait Belt Large Based Quad Cane Comments Mobility Comments positioned pt for transfer back to bed from the chair. pt completed sit to stand max A x 2 and max cues and required assistance and cues to maintain hip precautions and weight bearing restriction . attempted stand step transfer using FWW but pt stated that she does not think she can do it. assisted pt to sit back down requiring max A x 2 for controlled descent and assist with RLE. pt assisted back to bed using mechanical lift. positioned pt in bed. proper bed positioning conducted. left pt in bed with call light and table placed within reach . M5 PT-IP Objective Assessments Start: 01/03/19 13:00 Freq: NEEDED Status: Active Protocol: Document 01/03/19 10:35 AB (Rec: 01/03/19 13:14 AB [id number]) Orientation Orientation/Cognition Level of Alertness Alert Orientation Name Place Situation Language Function Ability No Deficits Noted Safety Awareness Decreased Safety Awareness Memory Description Short Term Impaired Strength Lower Extremity Strength Assessment Bilaterally Impaired Comments Strength Comments LLE: 3+/5 RLE 3-/5 Coordination Assessment Gross Coordination Gross Coordination WNL Sensation Assessment Sensation Gross Sensation WNL Muscle Tone Muscle Tone WNL Yes M6 PT-IP Treatment Start: 01/03/19 13:00 Freq: NEEDED Status: Active Protocol: Document 01/03/19 12:05 AB (Rec: 01/03/19 13:21 AB [id number]) Physical Therapy Treatment Education Education Provided Precautions Weight Bearing Status Safety M7 PT-IP Assessment and Plan Start: 01/03/19 13:00 Freq: NEEDED Status: Active Protocol: Document 01/03/19 12:05 AB (Rec: 01/03/19 13:21 AB [id number]) PT Summary Assessment and Plan Potential Rehabilitation Potential Fair Summary Impairments Pain ROM Strength Balance Coordination Sensation Tone Cognition Bed Mobility Transfers Gait Activity Tolerance Progress Towards Goals Slow Progress due to Pain Slow Progress due to Medical Issues Slow Progress due to Activity Tolerance Assessment Summary pt requiring 2 person assist with mobility. recommending mechanical lift transfers with nurses. pt is not consistent with level of assist due to c /o pain and level of fatigue. pt will need SNF rehab to improve strength, safety and mobility. Goals Bed Mobility Goal Minimal Assistance Transfer Goal Minimal Assistance Front Wheeled Walker Gait Goal Minimal Assistance Front Wheel Walker Gait Distance 25 Days to Meet Goals 10 Frequency of Treatment Frequency Of Treatment Twice a Day Treatment Plan Physical Therapy Treatment Plan Bed Mobility Training Transfer Training Gait Training Therapeutic Exercise Balance Retraining Post Op Education Discharge Planning Hot or Cold Pack Neuromuscular Re-ed Coordination Retraining Manual Therapy Other Recommendations and Next Treatment transfers Focus Recommendations To Nursing Amount of Assist Needed 2 Person Assist Mechanical Lift Discharge Recommendations PT Discharge Recommendations SNF Rehab
[2019-01-03] MEDS: HYDROMORPHONE 0.5 MG INJ IV ×3 (12:34→23:50)
[2019-01-03] MEDS: ACETAMINOPHEN 325 MG TABLET 975 MG PO ×3 (12:35→20:57)
--- NOTE | 2019-01-03 13:47 | PC.NURSE ---
Pt has been inappropriate and rude to staff today. Ask's us to help reposition her but then tries to do it herself without our help. Pt has a mauricio dressing on that is cdi, motor is not running green. faxed and asked to come take a look at this dressing. This RN looked at dressing and did not notice any leaks to area. Up with PT x1 and she is a max of 50lbs weight bearing to r.lower extremity. Pt did well getting up but had to be hoyered backed to bed. She had a percocet earlier and also 2mg of dilaudid.. Pt told anesthesiologist that she was not happy with her pain regimen. back up to see patient and ordered iv dilaudid along with 4mg of po dilaudid. Percocet did not work for her pain, Dilaudid 2mg was not effective either. So gave pt some iv dilaudid and this seems to be helping patient the most. Resting after being repositioned.
[2019-01-03] MEDS: HYDROMORPHONE 4 MG TABLET PO ×3 (15:58→22:14)
[2019-01-03] MEDS: FERROUS SULFATE 325 MG TABLET PO (19:04)
[2019-01-03] MEDS: ASCORBIC ACID 500 MG TABLET PO (20:57)
[2019-01-04] VITALS (8 sets, daily range): BP systolic 122–144; BP diastolic 51–82; PULSE 73–85; RESP 16–20; TEMP 36.6–37.2; O2SAT 91–97
[2019-01-04] MEDS: HYDROMORPHONE 2 MG TABLET 4 MG PO ×7 (01:34→21:31)
--- NOTE | 2019-01-04 02:42 | PC.NURSE ---
patient is refusing turns and her scd i have explained why they are needed and she still refused
[2019-01-04 05:56] LABS: Hematocrit 21.4 % (36-46); Hemoglobin 7.1 g/dL (12.0-16.0)
--- NOTE | 2019-01-04 06:42 | PC.NURSE ---
NOC shift: POD #2 femur repair to right hip hardware fracture post GLF. Pt AAOx3 w/continued pain issues. Continues to have 6/10 pain at rest. Taking po Diluadid w/IVP for breakthrough pain. Right hip dressing CDI w/functioning PICCO drain. Has minimal mobility to right lower leg, refuses to wear SCD's for sleeping, and refuses most of the shift to reposition or turn. Attempts to turn to surgical site only lasts 15 to 20 minutes. Discussed the importance of both, pt understands and still does not want the SCD's and minimal turning. VSSstephanie remains in place.
[2019-01-04] MEDS: ASCORBIC ACID 500 MG TABLET PO ×2 (08:42→21:28)
[2019-01-04] MEDS: ASPIRIN EC 81 MG TABLET PO ×2 (08:42→21:28)
[2019-01-04] MEDS: FERROUS SULFATE 325 MG TABLET PO ×2 (08:42→17:42)
[2019-01-04] MEDS: DOCUSATE 100 MG CAPSULE PO ×2 (08:42→21:28)
[2019-01-04] MEDS: ACETAMINOPHEN 325 MG TABLET 975 MG PO ×2 (08:43→21:28)
--- NOTE | 2019-01-04 11:00 | PT.IPTN ---
Current Diagnoses Acute posthemorrhagic anemia (12/30/18) Fracture of unspecified part of neck of right femur, initial encounter for closed fracture (12/30/18) Surgery Performed Operation Date: 01/02/19 15:00 Actual Procedures p Revision of Femoral stem, ORIF femur(Right) - Makenzie Salgado MD Physical Therapy Treatment Note M2 PT-IP Current Condition Start: 01/03/19 13:00 Freq: NEEDED Status: Active Protocol: Document 01/03/19 10:35 AB (Rec: 01/03/19 13:14 AB [id number]) Physical Therapy Current Condition Current Condition Evaluation Date 01/03/19 Treatment Diagnosis R prox femur comminuted periposthetic fx s/p ORIF/ h/o JUNI; diff in walking Onset Date 12/30/18 Precautions Posterior Hip Precautions No Hip Flexion > 90 degrees No Hip Internal Rotation No Hip Adduction Weight Bearing Status Weight Bearing Status Partial Weight Bearing Allowed Weight Bearing Amount (enter % RLE 50# weight bearing or #) (%) M3 PT-IP Subjective Start: 01/03/19 13:00 Freq: NEEDED Status: Active Protocol: Document 01/04/19 11:00 GGD (Rec: 01/04/19 13:36 GGD [id number]) Subjective Physical Therapy Visit Type Type Patient Refusal Notes Pt refused states that she needing to clean up first and would like to wait until after pain meds in 30 min. PT Discharge Recommendations SNF Rehab
--- NOTE | 2019-01-04 11:52 | PC.NURSE ---
Patient has been refusing SCDs throughout shift. Patient also refuses offers for help repositioning and wants to do it herself. -DOREEN
--- NOTE | 2019-01-04 13:41 | PT.IPTN ---
Current Diagnoses Acute posthemorrhagic anemia (12/30/18) Fracture of unspecified part of neck of right femur, initial encounter for closed fracture (12/30/18) Surgery Performed Operation Date: 01/02/19 15:00 Actual Procedures p Revision of Femoral stem, ORIF femur(Right) - Makenzie Salgado MD Physical Therapy Treatment Note M2 PT-IP Current Condition Start: 01/03/19 13:00 Freq: NEEDED Status: Active Protocol: Document 01/03/19 10:35 AB (Rec: 01/03/19 13:14 AB [id number]) Physical Therapy Current Condition Current Condition Evaluation Date 01/03/19 Treatment Diagnosis R prox femur comminuted periposthetic fx s/p ORIF/ h/o JUNI; diff in walking Onset Date 12/30/18 Precautions Posterior Hip Precautions No Hip Flexion > 90 degrees No Hip Internal Rotation No Hip Adduction Weight Bearing Status Weight Bearing Status Partial Weight Bearing Allowed Weight Bearing Amount (enter % RLE 50# weight bearing or #) (%) M3 PT-IP Subjective Start: 01/03/19 13:00 Freq: NEEDED Status: Active Protocol: Document 01/04/19 13:41 AB (Rec: 01/04/19 16:01 AB [id number]) Subjective Physical Therapy Visit Type Type Treatment Note Visit Start Time 13:41 Visit Stop Time 13:57 Total Visit Minutes 16 Number of GEOSCIENCE TECHNICIAN Visits 0 Physical Therapy Visit Comments Patient Comments pt agreed to get out of bed Therapy Pain Assessment Pain When Pain Assessed At Rest Pain Present Pain Present Pain Reported Location R hip Intensity 6 Scale Used Numeric (1 - 10) Pain Management Techniques Apply Cold Re-positioning Timing of Activity with Medications M4 PT-IP Mobility and Gait Start: 01/03/19 13:00 Freq: NEEDED Status: Active Protocol: Document 01/04/19 13:41 AB (Rec: 01/04/19 16:01 AB [id number]) PT-Bed Mobility Assessment Supine to Sit Supine to Sit Maximum Assistance 1 Person Assistance Scooting Scooting to Edge of Bed Maximum Assistance PT-Transfer Assessment Sit to and From Stand Sit to and from Stand Maximum Assistance 2 Person Assistance Use of Upper Extremities Equipment Transfer Assistive Device Gait Belt Front Wheeled Walker Orthotic/Prosthetic Devices or Brace: No Transfers Transfer Destination Chair Transfer Technique Stand Step Pivot Transfer Ability Level of Assist Moderate Assistance 2 Person Assistance Use of Upper Extremities Comments Mobility Comments tp completed bed mobility supine to sit max A and max cues. requires assist to move RLE. pt completed sit to stand from EOB mod A x 2 and max cues. required assist with RLE to maintain precautions and weight bearing restriction. pt completed stand step transfer using FWW mod A x 2 and max cues. pt was able to step/hop sideways to the chair. positioned pt on the chair. call light and table placed within reach. left pt with NAC. M5 PT-IP Objective Assessments Start: 01/03/19 13:00 Freq: NEEDED Status: Active Protocol: Document 01/03/19 10:35 AB (Rec: 01/03/19 13:14 AB [id number]) Orientation Orientation/Cognition Level of Alertness Alert Orientation Name Place Situation Language Function Ability No Deficits Noted Safety Awareness Decreased Safety Awareness Memory Description Short Term Impaired Strength Lower Extremity Strength Assessment Bilaterally Impaired Comments Strength Comments LLE: 3+/5 RLE 3-/5 Coordination Assessment Gross Coordination Gross Coordination WNL Sensation Assessment Sensation Gross Sensation WNL Muscle Tone Muscle Tone WNL Yes M6 PT-IP Treatment Start: 01/03/19 13:00 Freq: NEEDED Status: Active Protocol: Document 01/04/19 13:41 AB (Rec: 01/04/19 16:01 AB [id number]) Physical Therapy Treatment Education Education Provided Precautions Weight Bearing Status Safety Other Treatments Other Treatment Performed reviewed hip precautions and weight bearing restrictions with pt prior to mobility M7 PT-IP Assessment and Plan Start: 01/03/19 13:00 Freq: NEEDED Status: Active Protocol: Document 01/04/19 13:41 AB (Rec: 01/04/19 16:01 AB [id number]) PT Summary Assessment and Plan Potential Rehabilitation Potential Fair Summary Impairments Pain ROM Strength Balance Coordination Sensation Tone Cognition Bed Mobility Transfers Gait Activity Tolerance Progress Towards Goals Slow Progress due to Pain Assessment Summary pt continues to require 2 person assist with mobility and will require SNF rehab to improve strength and independence. Goals Bed Mobility Goal Minimal Assistance Transfer Goal Minimal Assistance Front Wheeled Walker Gait Goal Minimal Assistance Front Wheel Walker Gait Distance 25 Days to Meet Goals 10 Frequency of Treatment Frequency Of Treatment Twice a Day Treatment Plan Physical Therapy Treatment Plan Bed Mobility Training Transfer Training Gait Training Therapeutic Exercise Balance Retraining Post Op Education Discharge Planning Hot or Cold Pack Neuromuscular Re-ed Coordination Retraining Manual Therapy Other Recommendations and Next Treatment transfers Focus Recommendations To Nursing Amount of Assist Needed 2 Person Assist Mechanical Lift Discharge Recommendations PT Discharge Recommendations SNF Rehab
--- NOTE | 2019-01-04 14:57 | CM.DPC ---
DCP/continued: Reviewed chart. Spoke with Dr. Salgado today re: discharge. Dr. Salgado anticipates that patient will be medically stable for d/c on Wednesday01-06-19. [facility] notified. Received call from patient from room requesting update. Provided patient with the information above. Patient aware and agreeable to plan. Received vm from patient requesting [facility] [employer] call her back or come see her re: HR paperwork? This [facility] unable to accommodate today. RN notified and will let patient know. In addition, will pass on to [employer] [employer] covering tomorrow 01-05-19. Left message with Jacy at [facility] ph# [phone] re: the above. P: [facility] when medically stable. It is anticipated that patient will be cleared on Wednesday01-06-19. PASRR needs to be completed. SELINA Purcell
[2019-01-05 00:10] VITALS: BP 114/59; PULSE 85; RESP 18; TEMP 37.2; O2SAT 93
[2019-01-05] MEDS: HYDROMORPHONE 2 MG TABLET 4 MG PO ×8 (00:32→22:31)
[2019-01-05 04:00] VITALS: BP 121/68; PULSE 70; RESP 18; TEMP 36.9; O2SAT 94
[2019-01-05] MEDS: diphenhydrAMINE 50 MG/ML VIAL 25 MG IV (05:19)
[2019-01-05 05:59] LABS: Hematocrit 24.2 % (36-46)
--- NOTE | 2019-01-05 09:07 | CM.DPNOTE ---
TC placed back to Jacy Rogers P [phone] F [phone], updated that pt was scheduled to DC Wednesday01.06.19 to [facility]. JADA Butler to fax clinicals today. CARLOS EDUARDO
--- NOTE | 2019-01-05 09:44 | PM.PNPO.1 ---
Subjective Date Patient Seen: 01/04/19 Time Patient Seen: 07:31 Interval history: Patient's pain is moderate. Denies fever chills. No nausea vomiting. Exam Vital Signs (past 8 hours): - 01/05/19 04:00 Temperature 98.5 F Pulse Rate 70 Respiratory Rate 18 Blood Pressure 121/68 Pulse Oximetry 94 Oxygen Delivery Method Room Air Oxygen Flow Rate 0 Narrative Exam Narrative: 68-year-old female resting comfortably in bed in no apparent distress. Dressing is clean, dry and intact. Motor functions intact distally. Sensation grossly intact to light touch. Objective Labs Result Diagrams: 01/05/19 05:15 Labs: Laboratory Results - last 24 hr 01/04/19 01/05/19 13:06 05:15 Hgb 8.0 L Hct 24.2 L Blood Type O Positive Antibody Screen Negative Crossmatch See Detail Assessment & Plan Post-op Postoperative Procedures Operation Date: 01/02/19 15:00 Actual Procedures Side Surgeon p Revision of Femoral stem, ORIF femur Right Makenzie Monika Salgado MD Mobilize with physical therapy. Will order 1 unit packed red blood cells for postop anemia. Likely discharge to residential facility. Quality VTE Deep Vein Thrombosis/Pulmonary Embolism Present on Admission: No
[2019-01-05 09:45] VITALS: BP 142/73; PULSE 80; RESP 18; TEMP 37.1; O2SAT 95
[2019-01-05] MEDS: ACETAMINOPHEN 325 MG TABLET 975 MG PO ×3 (09:57→20:55)
[2019-01-05] MEDS: DOCUSATE 100 MG CAPSULE PO ×2 (09:59→20:55)
[2019-01-05] MEDS: ASPIRIN EC 81 MG TABLET PO ×2 (09:59→20:55)
[2019-01-05] MEDS: ASCORBIC ACID 500 MG TABLET PO ×2 (09:59→20:55)
[2019-01-05] MEDS: FERROUS SULFATE 325 MG TABLET PO ×2 (09:59→16:10)
--- NOTE | 2019-01-05 10:27 | PM.PNPO.1 ---
Subjective Date Patient Seen: 01/05/19 Time Patient Seen: 10:27 Interval history: Patient's pain is more moderate in nature but better controlled over the last day. Denies fever or chills. No nausea vomiting. She was able to sit at bedside for 3 hours yesterday. Did not require lift for transfer. Exam Vital Signs (past 8 hours): - 01/05/19 04:00 01/05/19 09:45 Temperature 98.5 F 98.7 F Pulse Rate 70 80 Respiratory Rate 18 18 Blood Pressure 121/68 142/73 H Pulse Oximetry 94 95 Oxygen Delivery Method Room Air Oxygen Flow Rate 0 Narrative Exam Narrative: Pleasant 68-year-old female resting comfortably in bed in no apparent distress. Rahul dressing is on and functioning. Dressing is clean, dry and intact. Right leg is warm and dry. Motor function is intact distally. Sensation grossly intact to light touch. Objective Labs Result Diagrams: 01/05/19 05:15 Labs: Laboratory Results - last 24 hr 01/04/19 01/05/19 13:06 05:15 Hgb 8.0 L Hct 24.2 L Blood Type O Positive Antibody Screen Negative Crossmatch See Detail Assessment & Plan Post-op Postoperative Procedures Operation Date: 01/02/19 15:00 Actual Procedures Side Surgeon p Revision of Femoral stem, ORIF femur Right Makenzie Monika Salgado MD Postop day 3. Mobilize with physical therapy. Anemia responding to 1 unit packed red blood cells yesterday. If patient continues to progress as expected we will transfer her to [facility] tomorrow. Quality VTE Deep Vein Thrombosis/Pulmonary Embolism Present on Admission: No
--- NOTE | 2019-01-05 10:31 | P.PN_ITS ---
Subjective Date Patient Seen: 01/05/19 Time Patient Seen: 10:27 Interval history: Patient's pain is more moderate in nature but better controlled over the last day. Denies fever or chills. No nausea vomiting. She was able to sit at bedside for 3 hours yesterday. Did not require lift for transfer. Exam Vital Signs (past 8 hours): - 01/05/19 04:00 01/05/19 09:45 Temperature 98.5 F 98.7 F Pulse Rate 70 80 Respiratory Rate 18 18 Blood Pressure 121/68 142/73 H Pulse Oximetry 94 95 Oxygen Delivery Method Room Air Oxygen Flow Rate 0 Narrative Exam Narrative: Pleasant 68-year-old female resting comfortably in bed in no apparent distress. Rahul dressing is on and functioning. Dressing is clean, dry and intact. Right leg is warm and dry. Motor function is intact distally. Sensation grossly intact to light touch. Objective Labs Result Diagrams: 01/05/19 05:15 Labs: Laboratory Results - last 24 hr 01/04/19 01/05/19 13:06 05:15 Hgb 8.0 L Hct 24.2 L Blood Type O Positive Antibody Screen Negative Crossmatch See Detail Assessment & Plan Post-op Postoperative Procedures Operation Date: 01/02/19 15:00 Actual Procedures Side Surgeon p Revision of Femoral stem, ORIF femur Right Makenzie Monika Salgado MD Postop day 3. Mobilize with physical therapy. Anemia responding to 1 unit packe d red blood cells yesterday. If patient continues to progress as expected we will transfer her to [facility] tomorrow. Quality VTE Deep Vein Thrombosis/Pulmonary Embolism Present on Admission: No
[2019-01-05 12:36] LABS: White Blood Cell Count 13.5 X10^3/uL (4.5-11.0)
--- NOTE | 2019-01-05 12:56 | PT.IPTN ---
Current Diagnoses Acute posthemorrhagic anemia (12/30/18) Fracture of unspecified part of neck of right femur, initial encounter for closed fracture (12/30/18) Surgery Performed Operation Date: 01/02/19 15:00 Actual Procedures p Revision of Femoral stem, ORIF femur(Right) - Makenzie Salgado MD Physical Therapy Treatment Note M2 PT-IP Current Condition Start: 01/03/19 13:00 Freq: NEEDED Status: Active Protocol: Document 01/03/19 10:35 AB (Rec: 01/03/19 13:14 AB [id number]) Physical Therapy Current Condition Current Condition Evaluation Date 01/03/19 Treatment Diagnosis R prox femur comminuted periposthetic fx s/p ORIF/ h/o JUNI; diff in walking Onset Date 12/30/18 Precautions Posterior Hip Precautions No Hip Flexion > 90 degrees No Hip Internal Rotation No Hip Adduction Weight Bearing Status Weight Bearing Status Partial Weight Bearing Allowed Weight Bearing Amount (enter % RLE 50# weight bearing or #) (%) M3 PT-IP Subjective Start: 01/03/19 13:00 Freq: NEEDED Status: Active Protocol: Document 01/05/19 12:46 SA (Rec: 01/05/19 12:56 SA [id number]) Subjective Physical Therapy Visit Type Type Treatment Note Visit Start Time 11:04 Visit Stop Time 11:32 Total Visit Minutes 28 Number of PUBLIC SPEAKING INSTRUCTOR Visits 1 Physical Therapy Visit Comments Patient Comments pt agreed to get out of bed Patient Goals To take a shower. Therapy Pain Assessment Pain When Pain Assessed During Mobility Pain Present Pain Present Pain Reported Location R hip Intensity 5 Scale Used Numeric (1 - 10) Pain Management Techniques Apply Cold Re-positioning Timing of Activity with Medications M4 PT-IP Mobility and Gait Start: 01/03/19 13:00 Freq: NEEDED Status: Active Protocol: Document 01/05/19 12:46 SA (Rec: 01/05/19 12:56 SA [id number]) PT-Bed Mobility Assessment Supine to Sit Supine to Sit Minimal Assistance 1 Person Assistance Bedrails Scooting Scooting to Edge of Bed Minimal Assistance Scooting Up and Down in Bed Minimal Assistance PT-Transfer Assessment Sit to and From Stand Sit to and from Stand Minimal Assistance 1 Person Assistance Use of Upper Extremities Equipment Transfer Assistive Device Gait Belt Front Wheeled Walker Orthotic/Prosthetic Devices or Brace: No Transfers Transfer Destination Chair Transfer Technique Stand Step Pivot Transfer Ability Level of Assist Moderate Assistance 1 Person Assistance Use of Upper Extremities Comments Mobility Comments Pt able to maintain WBing precaution with reliance on UEs and FWW, needs cues for safety and technique. M5 PT-IP Objective Assessments Start: 01/03/19 13:00 Freq: NEEDED Status: Active Protocol: Document 01/03/19 10:35 AB (Rec: 01/03/19 13:14 AB [id number]) Orientation Orientation/Cognition Level of Alertness Alert Orientation Name Place Situation Language Function Ability No Deficits Noted Safety Awareness Decreased Safety Awareness Memory Description Short Term Impaired Strength Lower Extremity Strength Assessment Bilaterally Impaired Comments Strength Comments LLE: 3+/5 RLE 3-/5 Coordination Assessment Gross Coordination Gross Coordination WNL Sensation Assessment Sensation Gross Sensation WNL Muscle Tone Muscle Tone WNL Yes M6 PT-IP Treatment Start: 01/03/19 13:00 Freq: NEEDED Status: Active Protocol: Document 01/05/19 12:46 SA (Rec: 01/05/19 12:56 SA [id number]) Physical Therapy Treatment Exercises Exercises Ankle Pumps Gluteal Sets Quad Sets Education Education Provided Precautions Weight Bearing Status Safety Other Treatments Other Treatment Performed Review of hip precautions. M7 PT-IP Assessment and Plan Start: 01/03/19 13:00 Freq: NEEDED Status: Active Protocol: Document 01/05/19 12:46 SA (Rec: 01/05/19 12:56 SA [id number]) PT Summary Assessment and Plan Potential Rehabilitation Potential Fair Summary Impairments Pain ROM Strength Balance Coordination Sensation Tone Cognition Bed Mobility Transfers Gait Activity Tolerance Assessment Summary Pt progressing with tx status, to attempt transfer to [facility] for shower this afternoon with OT. Frequency of Treatment Frequency Of Treatment Twice a Day Treatment Plan Physical Therapy Treatment Plan Bed Mobility Training Transfer Training Gait Training Therapeutic Exercise Balance Retraining Post Op Education Discharge Planning Hot or Cold Pack Neuromuscular Re-ed Coordination Retraining Manual Therapy Recommendations To Nursing Amount of Assist Needed 2 Person Assist Mechanical Lift Discharge Recommendations PT Discharge Recommendations SNF Rehab
[2019-01-05 13:00] VITALS: BP 142/77; PULSE 87; RESP 18; TEMP 36.3; O2SAT 96
--- NOTE | 2019-01-05 15:34 | PC.NURSE ---
Day Shift pt states pain is 7-04/06. Medicated with 4mg PO dilaudid q3hr per pt request. Weiss removed without issue today. Able to get up with PT and got a shower with PT/OT. No BM since 12/29, offered pt bowel meds, she declined and stated she would ask for them when she wanted them. Was not wearing SCDs on arrival and refused to put them on. Repositioned a few times during shift and up to the chair.
--- NOTE | 2019-01-05 15:36 | PT.IPTN ---
Current Diagnoses Acute posthemorrhagic anemia (12/30/18) Fracture of unspecified part of neck of right femur, initial encounter for closed fracture (12/30/18) Surgery Performed Operation Date: 01/02/19 15:00 Actual Procedures p Revision of Femoral stem, ORIF femur(Right) - Makenzie Salgado MD Physical Therapy Treatment Note M2 PT-IP Current Condition Start: 01/03/19 13:00 Freq: NEEDED Status: Active Protocol: Document 01/03/19 10:35 AB (Rec: 01/03/19 13:14 AB [id number]) Physical Therapy Current Condition Current Condition Evaluation Date 01/03/19 Treatment Diagnosis R prox femur comminuted periposthetic fx s/p ORIF/ h/o JUNI; diff in walking Onset Date 12/30/18 Precautions Posterior Hip Precautions No Hip Flexion > 90 degrees No Hip Internal Rotation No Hip Adduction Weight Bearing Status Weight Bearing Status Partial Weight Bearing Allowed Weight Bearing Amount (enter % RLE 50# weight bearing or #) (%) M3 PT-IP Subjective Start: 01/03/19 13:00 Freq: NEEDED Status: Active Protocol: Document 01/05/19 15:28 SA (Rec: 01/05/19 15:36 [id number]) Subjective Physical Therapy Visit Type Type Treatment Note Visit Start Time 14:07 Visit Stop Time 14:22 Total Visit Minutes 15 Number of PANTOGRAPH WATCHER Visits 2 Physical Therapy Visit Comments Patient Comments Pt feeling ready for a shower , rates pain as 3/10. Had pain meds about 1 hour ago. Therapy Pain Assessment Pain When Pain Assessed During Mobility Pain Present Pain Present Pain Reported Location R hip Intensity 3 Scale Used Numeric (1 - 10) M4 PT-IP Mobility and Gait Start: 01/03/19 13:00 Freq: NEEDED Status: Active Protocol: Document 01/05/19 15:28 SA (Rec: 01/05/19 15:36 [id number]) PT-Transfer Assessment Sit to and From Stand Sit to and from Stand Contact Guard Assistance 1 Person Assistance Equipment Transfer Assistive Device Gait Belt Front Wheeled Walker Orthotic/Prosthetic Devices or Brace: No Transfers Transfer Destination Wheelchair Bedside Commode Transfer Technique Stand Step Pivot Transfer Ability Level of Assist Contact Guard Assistance Minimal Assistance 2 Person Assistance Comments Mobility Comments PT completed stand pivot txs Chair>WC>BSC in bathroom with CGA-Min A x 2 and Mod cues for technique. OT present for co-tx. Gait Assessment Gait Gait Assistance Required: Minimum Assistance 1 Person Assist Distance (Feet) 3 Able to Maintain Weight Bearing Status Yes During Gait Assistive Devices Assistive Device Gait Belt Front Wheeled Walker Gait Deviations General Gait Pattern Step-to Gait Factors Limiting Gait Function Factors Limiting Gait Function Decreased Activity Tolerance Decreased Strength Limited Range of Motion Pain Poor Balance Poor Safety Awareness Comments Gait Comments Hop to gait pattern from to [facility] in shower for about 3 feet and transfer. Min A with mod cues. Pt maintains WBing precaution well. M5 PT-IP Objective Assessments Start: 01/03/19 13:00 Freq: NEEDED Status: Active Protocol: Document 01/03/19 10:35 AB (Rec: 01/03/19 13:14 AB [id number]) Orientation Orientation/Cognition Level of Alertness Alert Orientation Name Place Situation Language Function Ability No Deficits Noted Safety Awareness Decreased Safety Awareness Memory Description Short Term Impaired Strength Lower Extremity Strength Assessment Bilaterally Impaired Comments Strength Comments LLE: 3+/5 RLE 3-/5 Coordination Assessment Gross Coordination Gross Coordination WNL Sensation Assessment Sensation Gross Sensation WNL Muscle Tone Muscle Tone WNL Yes M6 PT-IP Treatment Start: 01/03/19 13:00 Freq: NEEDED Status: Active Protocol: Document 01/05/19 15:28 SA (Rec: 01/05/19 15:36 [id number]) Physical Therapy Treatment Education Education Provided Precautions Weight Bearing Status Safety Other Treatments Other Treatment Performed Review of hip precautions. M7 PT-IP Assessment and Plan Start: 01/03/19 13:00 Freq: NEEDED Status: Active Protocol: Document 01/05/19 15:28 (Rec: 01/05/19 15:36 [id number]) PT Summary Assessment and Plan Potential Rehabilitation Potential Fair Summary Impairments Pain ROM Strength Balance Coordination Sensation Tone Cognition Bed Mobility Transfers Gait Activity Tolerance Assessment Summary Pt did well with transfers prior to shower. Uses UEs well through FWW and able to maintain RLE WBing. Frequency of Treatment Frequency Of Treatment Twice a Day Treatment Plan Physical Therapy Treatment Plan Bed Mobility Training Transfer Training Gait Training Therapeutic Exercise Balance Retraining Post Op Education Discharge Planning Hot or Cold Pack Neuromuscular Re-ed Coordination Retraining Manual Therapy Recommendations To Nursing Amount of Assist Needed 2 Person Assist Discharge Recommendations PT Discharge Recommendations SNF Rehab
[2019-01-05 17:00] VITALS: BP 130/85; PULSE 72; RESP 19; TEMP 36.4; O2SAT 97
[2019-01-05] MEDS: POLYETHYLENE GLYCOL 3350 17 GM POWD.PACK PO (17:04)
--- NOTE | 2019-01-05 19:46 | OT.IP.EVAL ---
Current Diagnoses Acute posthemorrhagic anemia (12/30/18) Fracture of unspecified part of neck of right femur, initial encounter for closed fracture (12/30/18) Surgery Performed Operation Date: 01/02/19 15:00 Actual Procedures p Revision of Femoral stem, ORIF femur(Right) - Makenzie Salgado MD Past Medical History (Last Updated 01/03/19 @ 07:57 by Joo Farris PA-C) Postoperative anemia due to acute blood loss (Acute) Morbid obesity with BMI of 40.0-44.9, adult (Acute) BCC (basal cell carcinoma) (Acute) Benign positional vertigo (Acute) Concussion (Acute) HLD (hyperlipidemia) (Acute) Hx of ectopic (Acute) Pelvic fracture (Acute) Periodontal disease (Acute) Right foot drop (Acute) Surgical History (Last Reviewed 12/31/18 @ 09:13 by Yovany Stewart MD) Hx of appendectomy (Acute) S/P cervical spinal fusion (Acute ~1991) Status post bilateral cataract extraction (Acute) Occupational Therapy Inpatient Evaluation/Re-Eval M1 PT/OT-IP Prior Functional Status Start: 01/05/19 19:24 Freq: NEEDED Status: Active Protocol: Document 01/05/19 14:00 [facility] (Rec: 01/05/19 19:46 [facility] [id number]) Medical Review Prior Functional Status Medical History Reviewed Yes Communication able to make needs known Mobility and Gait pt stated that she is modified independent with all mobilities and ambulation using a SPC Activities of Daily Living and IADL's Pt states able to do own ADL's , IADL's, even to reach down to wash her feet. Prior Functional Level (Other details) pt stated that she had R Jose last 11/08/18 and went to rehab and went home. stated that she used a FWW first day after d/c but has to return the FWW to her neighbor and has used a SPC since then. pt s/p fall and sustained a R proximal femur comminuted periprosthetic fx and underwent ORIF. Social History Household Members none Living Arrangements House Number of Floors (Floors) One Floor Number of Stairs To Enter/Railing? 3 steps to enter without rails Home Environment High Toilet Walk in Shower Home Equipment Straight Cane Hand Held Shower Grab Bars Near Toilet Grab Bars In Shower Employment Status Retired M2 OT-IP Current Condition Start: 01/05/19 19:24 Freq: Status: Active Protocol: Document 01/05/19 14:00 [facility] (Rec: 01/05/19 19:46 [facility] [id number]) Occupational Therapy Current Condition Current Condition Evaluation Date 01/05/19 Treatment Diagnosis Right proximal fmur comminuted periposthetic fx, s/ p ORIF, weakness Diagnosis Onset Date 01/04/19 Post Operative Precautions Posterior Hip Precautions No Hip Flexion > 90 degrees No Hip Internal Rotation No Hip Adduction Weight Bearing Status Weight Bearing Status Partial Weight Bearing Allowed Weight Bearing Amount (enter % 50# for RLE or #) (%) M3 OT- IP Subjective and Pain Start: 01/05/19 19:24 Freq: Status: Active Protocol: Document 01/05/19 14:00 [facility] (Rec: 01/05/19 19:46 [facility] [id number]) OT- Subjective Occupational Therapy Visit Type Type Initial Evaluation Visit Start Time 14:00 Visit Stop Time 15:08 Total Visit Minutes 68 Occupational Therapy Visit Comments Patient Comments Pt wanting to shower. LOGISTICS OFFICER present to assist with transfer into the shower due to complex transfer with 50# Wb status for RLE. Patient/Caregiver Goals Go to rehab prior to going home. OT Pain Assessment Pain When Pain Assessed During Mobility Pain Present Pain Present Pain Reported Location R hip Intensity 3 Scale Used Numeric (1 - 10) M4 OT- IP ADL's Start: 01/05/19 19:24 Freq: Status: Active Protocol: Document 01/05/19 14:00 [facility] (Rec: 01/05/19 19:46 [facility] [id number]) OT ADL-Grooming General Evaluation Grooming Ability Standby Assistance Comments OT Grooming Comments After set-up able to do while sitting. OT ADL-Dressing General Eval Lower Body Dressing Ability Maximum Assistance Comments OT Dressing Comments Pt educated on LB AED for needs. OT ADL-Toileting General Evaluation Toileting Ability Maximum Assistance Devices Toileting Assistive Devices Commode Grab Bars Comments OT Toileting Comments Pt heavily relies on grab bars in order to wipe her front , however at this time would need MAx A to assist with pericare needs after bowel movement or use of toilet aid. OT ADL-Bathing Bathing Type Bathing Type Shower General Evaluation Bathing Ability Maximal Assistance Areas Needing Assistance Retrieving/Setting Up Items Wash/Dry Back Wash/Dry Perineal Area Wash/Dry Lower Extremities Devices Bathing Equipment Shower Chair with Arms Comments OT Bathing Comments Pt states prior at home was able to spread her feet apart in the shower to be able to reach her feet to wash, however explained to pt that it would be bending too far over and breaking the precaution of bending greater than 90 degrees. Suggested that pt have a shower chair in addition to long handle sponge and someone to assist. M5 OT- IP IADL's Start: 01/05/19 19:24 Freq: Status: Active Protocol: Document 01/05/19 14:00 [facility] (Rec: 01/05/19 19:46 [facility] [id number]) OT-Instrumental Activities of Daily Living Home Safety Awareness Home Safety Comments PT states was completely independent with everything prior to hip sx. M6 OT- IP Functional Cognition Start: 01/05/19 19:24 Freq: Status: Active Protocol: Document 01/05/19 14:00 [facility] (Rec: 01/05/19 19:46 [facility] [id number]) Cognitive Factors Limiting Selfcare Function Cognitive Ability Level of Alertness Alert Patient Orientation Name Place Situation Attention Span Ability Capable of Focused Attention Capable of Sustained Attention Ability to Follow Commands Able to Follow One Step Commands Memory Description Short Term Impaired Safety Awareness Decreased Ability to Apply Precautions Underestimates Need for Assistance Problem Solving Ability Needs Assist to Identify Solutions Cognitive Comments Cognitive Assessment Comments Pt needing reminders to follow hip precautions while showering as tends to lean forwards too far. Pt needing concrete commands for safety and needs to have instructions explained to her before. OT- Vision and Hearing OT- Hearing Assessment OT- Hearing Assessment WFL M7 OT- IP Mobility and Balance Start: 01/05/19 19:24 Freq: Status: Active Protocol: Document 01/05/19 14:00 [facility] (Rec: 01/05/19 19:46 [facility] [id number]) OT-Transfer Assessment Sit to and From Stand Sit to and from Stand Minimal Assistance 1 Person Assistance Transfers Transfer Ability Minimal Assistance Moderate Assistance 1 Person Assistance 2 Person Assistance Use of Upper Extremities Technique Transfer Destination Bed Bedside Commode Shower Stall Transfer Technique Stand Step Pivot Devices Transfer Assistive Devices Gait Belt Front Wheeled Walker Comments Mobility Comments Heavy use of arms on FWW and grab bars, pt able to get up and down with fair+ safety to follow hip precautions however as pt tires tends to put too much weight on RLE. Pt able to hop on LLE with FWW for a few steps. SIS x 2 with FWW to get to [facility] in shower. MODA x1 to transfer back to and recliner. OT- Balance Assessment Sitting Balance and Reactions Static Sitting Balance Ability Normal Dynamic Sitting Balance Ability Good Standing Balance and Reactions Static Standing Balance Ability Fair M8 OT- IP Objective Assessments Start: 01/05/19 19:24 Freq: Status: Active Protocol: Document 01/05/19 14:00 [facility] (Rec: 01/05/19 19:46 [facility] [id number]) OT Gross Range of Motion Upper Extremity Range of Motion Assessment Within Functional Limits OT Strength Upper Extremity Strength Assessment Within Functional Limits OT- Coordination Assessment Comments Coordination Comments WFL for ADl needs. M9 OT- IP Assessment and Plan Start: 01/05/19 19:24 Freq: Status: Active Protocol: Document 01/05/19 14:00 [facility] (Rec: 01/05/19 19:46 [facility] [id number]) OT Summary Assessment and Plan Potential Rehabilitation Potential Good Analytic Complexity at Evaluation Low Summary OT Impairments Pain Strength Balance Functional Cognition Functional Mobility Dressing Toileting Bathing Toilet Transfers Shower Transfers Progress Towards Goals Progressing Toward Goals Assessment Summary Pt low complexity and main barriers are steps, decreased endurance and activity tolerance, and weight bearing status and will benefit from skilled rehab prior to going home. Rehab to focus on hip precautions for especially ADl and IADl needs as prior pt questionable if following precautions precise enough. Pt realizing that she may have been bending too much especially for ADL needs. Goals Dressing Goal Contact Guard Assistance Toileting Goal Minimal Assistance Bathing Goal Minimal Assistance Toilet Transfer Goal Contact Guard Assistance Shower Transfer Goal Minimal Assistance Patient/Caregiver Education Goal Demonstrate Post-Op Precautions Days to Meet Goals 7 Frequency of Treatment Frequency Of Treatment Once a Day Treatment Plan OT Treatment Plan ADL Training Functional Cognition Training Functional Mobility Patient/Family Education Discharge Planning Other Treatment Recommendations and Next Educating of incorporation of Treatment Focus hip precautions for ADl and IADl needs. Discharge Recommendations OT Discharge Recommendations SNF Rehab Home Equipment Needs shower chair, sock aid, toilet aid
[2019-01-05 19:55] VITALS: BP 135/60; PULSE 76; RESP 21; TEMP 36.7; O2SAT 96
--- NOTE | 2019-01-05 22:45 | PC.NURSE ---
Addendum entered by Leonela Mcallister R.N. 01/05/19 22:58: Refused SCD's Original Note: Toya shift note: Had BM x 2.
[2019-01-06 00:13] VITALS: BP 130/55; PULSE 69; RESP 18; TEMP 36.9; O2SAT 94
[2019-01-06] MEDS: HYDROMORPHONE 2 MG TABLET 4 MG PO ×3 (03:21→13:02)
[2019-01-06 04:00] VITALS: BP 112/76; PULSE 73; RESP 18; TEMP 36.8; O2SAT 94
[2019-01-06] MEDS: HYDROMORPHONE 2 MG TABLET PO ×2 (06:19→08:11)
--- NOTE | 2019-01-06 06:32 | PC.NURSE ---
Pt rates pain 5/10 and has used 4 mg dilaudid po x 2 this shift, and 2 mg dilaudid po x 1 this shift. She is able to stand and pivot to BSC and voiding qs. Multiple BMs yesterday. Pt slept intermittently.
[2019-01-06 07:30] VITALS: BP 130/69; PULSE 74; RESP 16; TEMP 36.7; O2SAT 95
--- NOTE | 2019-01-06 07:55 | DI.RAD.S_ITS ---
PROCEDURE: XR PELVIS 1-2V INDICATIONS: post op TECHNIQUE: 1 view of the lower pelvis acquired. COMPARISON: [facility], , XR PELVIS 1-2V, 11/08/2018, 13:30. FINDINGS: Bones: Patient is status post revision right total hip arthroplasty, with hardware components in expected positions. The hip joint appears congruent. The visualized bony structures appear intact. Soft tissues: Overlying postoperative changes are noted. No suspicious soft tissue densities. IMPRESSION: Status post interval revision right total hip arthroplasty without evidence for acute hardware complication. Dictated by: Ramo Muñoz M.D. on 01/06/2019 at 10:18 Approved by: Ramo Muñoz M.D. on 01/06/2019 at 10:19
[2019-01-06] MEDS: ASPIRIN EC 81 MG TABLET PO (08:11)
[2019-01-06] MEDS: ACETAMINOPHEN 325 MG TABLET 975 MG PO (08:11)
[2019-01-06] MEDS: DOCUSATE 100 MG CAPSULE PO (08:11)
[2019-01-06] MEDS: FERROUS SULFATE 325 MG TABLET PO (08:11)
[2019-01-06] MEDS: ASCORBIC ACID 500 MG TABLET PO (08:11)
--- NOTE | 2019-01-06 10:38 | P.DS_ITS ---
History of Present Illness Date Patient Seen: 01/06/19 Time Patient Seen: 10:38 Chief complaint: RIGHT HIP FRACTURE Narrative: Please see HPI previously recorded in the chart. Discharge Providers Date of admission: 12/30/18 21:20 Discharge Date: 01/06/19 Primary care physician: TERRY Thurston Consults: 12/30/18 22:19 Consult to Discharge Planning Routine Comment: 01/03/19 00:07 Consult to Discharge Planning Routine Comment: rehab, SNF Consult to Physical Therapy Evaluate & Treat Comment: complex femur fx, 50 lbs. rt LE Physician Instructions: post op JUNI protocol Consult to Respiratory Therapy Evaluate & Treat Comment: Physician Instructions: Evaluate and treat 01/05/19 11:42 Consult to Occupational Therapy Evaluate & Treat Comment: Physician Instructions: Evaluate and treat Discharge provider: Nannette Ward PA-C Summary Discharge Diagnosis: s/p revision of right hip stem, ORIF of right femur fracture Hospital Course: This is a [age] year old female who has a history of a right total-hip. She fell while gardening and noted the acute onset of severe right hip pain. She had a recent right total hip arthroplasty. Her x-rays showed of comminuted periprosthetic right proximal femur fracture with subsidence of her femoral stem she is brought the operating room for repair is indicated. After informed consent was obtained patient was taken to the operating room to undergo revision of right hip stem, ORIF of right femur fracture with Dr. Salgado. She has been progressing post operatively. She had some difficulty with pain control initially but Dilaudid 4mg is now controlling well. She is partial weight bearing on the operative extremity but has been mobilizing about the room. She is voiding and tolerating a diet. Cultures obtained from right hip s how scant growth of staph hominis and a gram negative reese which are pansensitive. She is asymptomatic for infection and is being discharged to [facility] with supply of Bactrim DS x14 days. she had symptomatic post operative anemia which responded to one unit PBC. She is medically stable for d ischarge. Status at Discharge Cognitive/behavioral status at discharge: oriented Functional status at discharge: uses cane/walker Overall status at discharge: patient is progressing back to baseline Exam Vital Signs (past 8 hours): - 01/06/19 04:00 01/06/19 07:30 Temperature 98.3 F 98.0 F Pulse Rate 73 74 Respiratory Rate 18 16 Blood Pressure 112/76 130/69 Pulse Oximetry 94 95 Oxygen Delivery Method Room Air Oxygen Flow Rate 0 Narrative Exam Narrative: 68 year old female resting in chair in no acute distress. Alert and oriented. Rahul dressing in place over right hip is clean, dry, and intact. Intact motor function distally. SILT. Palpable pedal pulse. Calves soft, compressible. Objective Labs Result Diagrams: 01/05/19 05:15 Labs: Laboratory Results - last 24 hr 01/04/19 01/05/19 13:06 05:15 WBC 13.5 H Hgb 8.0 L Hct 24.2 L Crossmatch See Detail Discharge Plan Discharge Plan Patient Disposition: SNF Transfer to: [facility], [facility] Consult as needed: Dental, Hearing, Mental health, Podiatry and Vision I certify the postop hospital detention care is medically necessary on a continuing basis for any conditions for which he/ she received care during this hospitalization.: Yes The receiving facility has agreed to accept transfer and provide medical treatment.: Yes Discharge Med Rec/Prescriptions Prescriptions: New aspirin 81 mg Tablet,Delayed Release (Dr/Ec) 81 mg PO BID Qty: 60 RF: 0 hydromorphone 2 mg Tablet 4 mg PO Q4-6H PRN (Reason: Pain, Severe (7-10)) Qty: 60 RF: 0 ascorbic acid (vitamin C) [Vitamin C] 500 mg Tablet 500 mg PO BID Qty: 60 RF: 0 ferrous sulfate 325 mg (65 mg iron) Tablet 325 mg PO BIDWM Qty: 60 RF: 0 docusate sodium [DOK] 100 mg Capsule 100 mg PO BID Qty: 60 RF: 0 sulfamethoxazole-trimethoprim [Bactrim DS] 800-160 mg tablet 1 tab PO BID Qty: 28 RF: 0 Supplements Qty: 1 RF: 0 Continued ibuprofen 800 mg Tablet 800 mg PO TID RF: 0 acetaminophen [Tylenol Extra Strength] 500 mg Tablet 1,000 mg PO TID RF: 0 aspirin 81 mg Tablet,Delayed Release (Dr/Ec) 81 mg PO BID Qty: 0 RF: 0 oxycodone 5 mg Tablet 5 mg PO Q4H PRN (Reason: Pain, Moderate (4-6)) Qty: 0 RF: 0 hydroxyzine pamoate 25 mg Capsule 25 mg PO Q6HR PRN (Reason: Spasms) Qty: 0 RF: 0 hydromorphone [Dilaudid] 2 mg tablet 2 mg PO Q4-6H PRN (Reason: pain) Qty: 15 RF: 0 Follow up/Referrals: Makenzie Salgado MD [Physician] - Maria T Desai ARNP [Primary Care Provider] - Discharge Health Status Brief summary of current health status: Medically stable. Asymptomatic postoperative anemia Multidrug resistant organism: No MDRO Precautions: Clare Provider Discharge Instructions Diet: Diet as Tolerated Liquid consistency: Normal/Thin Food texture: Regular Activity: <50lbs weight bearing on operative extremity Cold/Heat Therapy: Ice packs as needed Skin/Wound/Dressing Care Report to your healthcare provider any signs of infection, such as:: chills, fever, night sweats, unusual drainage and unusual redness Dressing: Leave dressing in place, it will be removed at post operative visit. May be changed if becomes soaked. Special Rehabilitation Services Reason for rehabilitation: Post-operative therapy Rehab type: Physical therapy and Occupational therapy Visit Report/Discharge Packet Instructions: DI for Hip Fracture, DI for Open Reduction Internal Fixation Surgery Discharge Data Primary Care Provider: Maria T Desai Attending Provider: Yovany Stewart Admit Date/Time: 12/30/18 21:20 Quality VTE Deep Vein Thrombosis/Pulmonary Embolism Present on Admission: No
--- NOTE | 2019-01-06 11:10 | PT.IPTN ---
Current Diagnoses Acute posthemorrhagic anemia (12/30/18) Fracture of unspecified part of neck of right femur, initial encounter for closed fracture (12/30/18) Surgery Performed Operation Date: 01/02/19 15:00 Actual Procedures p Revision of Femoral stem, ORIF femur(Right) - Makenzie Salgado MD Physical Therapy Treatment Note M2 PT-IP Current Condition Start: 01/03/19 13:00 Freq: NEEDED Status: Active Protocol: Document 01/03/19 10:35 AB (Rec: 01/03/19 13:14 AB [id number]) Physical Therapy Current Condition Current Condition Evaluation Date 01/03/19 Treatment Diagnosis R prox femur comminuted periposthetic fx s/p ORIF/ h/o JUNI; diff in walking Onset Date 12/30/18 Precautions Posterior Hip Precautions No Hip Flexion > 90 degrees No Hip Internal Rotation No Hip Adduction Weight Bearing Status Weight Bearing Status Partial Weight Bearing Allowed Weight Bearing Amount (enter % RLE 50# weight bearing or #) (%) M3 PT-IP Subjective Start: 01/03/19 13:00 Freq: NEEDED Status: Active Protocol: Document 01/06/19 11:10 AB (Rec: 01/06/19 12:02 AB [id number]) Subjective Physical Therapy Visit Type Type Treatment Note Visit Start Time 11:10 Visit Stop Time 11:53 Total Visit Minutes 43 Number of CERTIFICATION OFFICER Visits 0 Physical Therapy Visit Comments Patient Comments pt agreed to do PT Therapy Pain Assessment Pain When Pain Assessed At Rest Pain Present Pain Present Pain Reported Location R hip Scale Used pain scale not stated Pain Management Techniques Re-positioning Timing of Activity with Medications M4 PT-IP Mobility and Gait Start: 01/03/19 13:00 Freq: NEEDED Status: Active Protocol: Document 01/06/19 11:10 AB (Rec: 01/06/19 12:02 AB [id number]) PT-Transfer Assessment Sit to and From Stand Sit to and from Stand Contact Guard Assistance Equipment Transfer Assistive Device Front Wheeled Walker Transfers Transfer Destination Wheelchair Transfer Technique Stand Step Pivot Transfer Ability Level of Assist Contact Guard Assistance 1 Person Assistance Use of Upper Extremities Comments Mobility Comments pt sitting on bedside commode. completed sit to stand CGA with cues to maintain hip precautions and weight bearing precautions. pt was able to maintain standing using FWW for support TTWB on RLE SBA while assisted with hygiene care. pt completed sit<>stand x 4 reps and was able to maintain standing using FWW for support while assisted with dressing. pt ambulated using fWW from chair to w/c CGA ~ 8 ft NWB on RLE. pt positioned in front of the sink and pt completed grooming . pt wants to sit up on the chair and ambulated from the w /c using FWW CGA ~ 6 ft. positioned pt on the chair. call light and table placed within reach. Gait Assessment Gait Gait Assistance Required: Contact Guard Assist Distance (Feet) 8 Assistive Devices Assistive Device Front Wheeled Walker Orthotic/Prosthetic Devices or Brace: No Factors Limiting Gait Function Factors Limiting Gait Function Decreased Activity Tolerance Decreased Strength Pain Poor Balance Poor Safety Awareness Comments Gait Comments pt ambulated using FWW NWB on RLE. M5 PT-IP Objective Assessments Start: 01/03/19 13:00 Freq: NEEDED Status: Active Protocol: Document 01/03/19 10:35 AB (Rec: 01/03/19 13:14 AB [id number]) Orientation Orientation/Cognition Level of Alertness Alert Orientation Name Place Situation Language Function Ability No Deficits Noted Safety Awareness Decreased Safety Awareness Memory Description Short Term Impaired Strength Lower Extremity Strength Assessment Bilaterally Impaired Comments Strength Comments LLE: 3+/5 RLE 3-/5 Coordination Assessment Gross Coordination Gross Coordination WNL Sensation Assessment Sensation Gross Sensation WNL Muscle Tone Muscle Tone WNL Yes M6 PT-IP Treatment Start: 01/03/19 13:00 Freq: NEEDED Status: Active Protocol: Document 01/06/19 11:10 AB (Rec: 01/06/19 12:02 AB [id number]) Physical Therapy Treatment Education Education Provided Precautions Weight Bearing Status Safety M7 PT-IP Assessment and Plan Start: 01/03/19 13:00 Freq: NEEDED Status: Active Protocol: Document 01/06/19 11:10 AB (Rec: 01/06/19 12:02 AB [id number]) PT Summary Assessment and Plan Potential Rehabilitation Potential Fair Summary Impairments Pain ROM Strength Balance Coordination Sensation Tone Cognition Bed Mobility Transfers Gait Activity Tolerance Progress Towards Goals Slow Progress - Other Assessment Summary pt progressing slowly with mobility with weight bearing restriction affecting progress . pt continues to require CGa with mobility. pt will benefit from SNF rehab. Goals Bed Mobility Goal Minimal Assistance Transfer Goal Minimal Assistance Front Wheeled Walker Gait Goal Minimal Assistance Front Wheel Walker Gait Distance 25 Days to Meet Goals 10 Frequency of Treatment Frequency Of Treatment Twice a Day Treatment Plan Physical Therapy Treatment Plan Bed Mobility Training Transfer Training Gait Training Therapeutic Exercise Balance Retraining Post Op Education Discharge Planning Hot or Cold Pack Neuromuscular Re-ed Coordination Retraining Manual Therapy Recommendations To Nursing Amount of Assist Needed 1 Person Assist Discharge Recommendations PT Discharge Recommendations SNF Rehab
--- NOTE | 2019-01-06 14:41 | CM.DPNOTE ---
DC Note: This [employer] facilitated DC to [facility] today, pt remains agreeable to plan and [facility] spoke w/pt at bedside this morning, continues to feel they can accommodate pt. [facility] faxed all completed DC ppk, completed me dlist and completed PASRR to [facility]. [facility]eta arranged cabulance p/u for 1330, wider w/c requested by Geeta. J+B scheduled. P: DC to [facility] via cabulance today. SELINA Barkley
--- NOTE | 2019-01-06 14:50 | PC.NURSE ---
Discharge pt states pain tolerable with PO dilaudid. Tried to wean down to 2mg this AM, did not work and took 4mg for remainder of shift. report called to Kat at [facility]. pt up in chair for majority of shift. SBA with FWW for transfers. pt took all belongings with her, cane, chemical strength tester, phone, silk trimmer, 3 suitcases, 2 additional bags, purse to name a few. PIV removed without issue prior to d/c. left in w/c with cabulance jinriksha driver.
== END 2019-01-06 14:10 | DRG 467 ==
PROVIDERS: Orthopaedic Surgery; Physician Assistant Medical; Admitting Provider Orthopaedic Surgery; PCP Nurse Practitioner; Visit Provider Orthopaedic Surgery
PROC: 0SRR01A Replacement of Right Hip Joint, Femoral Surface with Metal Synthetic Substitute, Uncemented, Open Approach (ICD-10-PCS; principal; 2019-01-02 15:00)
DX: S72.001A Fracture of unspecified part of neck of right femur, initial encounter for closed fracture (principal); M97.01XA Periprosthetic fracture around internal prosthetic right hip joint, initial encounter; Z68.41 Body mass index [BMI] 40.0-44.9, adult; D62 Acute posthemorrhagic anemia; E66.01 Morbid (severe) obesity due to excess calories; W18.30XA Fall on same level, unspecified, initial encounter
CPT/HCPCS: 36415; 36430; 72170; 73502; 73503; 76000; 85014; 85018; 85027; 85048; 86850; 86900; 86901; 87070; 87075; 87077; 87186; 87205; 94762; 97116; 97162; 97165; 97530; 97535; C1776; P9016; C9290; J0690; J1170; J1200; J1650; J2250; J2274; J2405; J3010